=== PATIENT | male | born 1965 | race African-American/Black ===

== ENCOUNTER 2017-07-13 10:56 | Inpatient (IN) | payer OTHER ==
[2017-07-13 12:43] VITALS: BMI 24.8
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
[2017-07-13] MEDS ORDERED: MAG HYDROX/AL HYDROX/SIMETH 30 ML UNIT-DOSE CUP PO PRN (20:16)
[2017-07-13] MEDS ORDERED: NICOTINE POLACRILEX 2 MG GUM BUC PRN (20:16)
[2017-07-13] MEDS ORDERED: MAGNESIUM CITRATE 300 ML BOTTLE PO PRN (20:16)
[2017-07-13] MEDS ORDERED: hydrOXYzine PAMOATE 50 MG CAPSULE (FP) PO PRN (20:16)
[2017-07-13] MEDS ORDERED: guaiFENesin/D-METHORPHAN HB 10 ML UNIT-DOSE CUPS PO PRN (20:16)
[2017-07-13] MEDS ORDERED: ACETAMINOPHEN 325 MG TABLET (FP) PO PRN (20:16)
[2017-07-13] MEDS ORDERED: MAGNESIUM HYDROX 2400MG/30ML ORAL SUSPENSION 30 ML CUP PO PRN (20:16)
[2017-07-13] MEDS ORDERED: MENTHOL/PHENOL 1 EACH UD MM PRN (20:16)
[2017-07-13] MEDS ORDERED: LOPERAMIDE HCL 2 MG CAPSULE PO PRN (20:16)
[2017-07-13] MEDS ORDERED: P-EPHED 60MG/TRIPROLIDI 2.5MG TABLET PO PRN (20:16)
[2017-07-13] MEDS: THIAMINE HCL 100 MG TABLET (FP) PO SCH (21:39)
[2017-07-13] MEDS ORDERED: TUBERCULIN PPD 5 TU/0.1ML VIAL ID ONE (21:53)
[2017-07-14] MEDS: PRENATAL VITAMINS W/ FOLIC ACID TABLET (FP) PO SCH (10:12)
[2017-07-14] MEDS: ASPIRIN 81 MG CHEWABLE TABLETS PO SCH (10:12)
[2017-07-14] MEDS: HYDROCHLOROTHIAZIDE 25 MG TABLET (FP) PO SCH (10:12)
[2017-07-14 10:16] LABS: URINE APPEARANCE CLEAR; URINE BILIRUBIN NEGATIVE (NEGATIVE); URINE BLOOD NEGATIVE (NEGATIVE); URINE COLOR LTYELLOW; URINE GLUCOSE (UA) NEGATIVE (NEGATIVE); URINE KETONE NEGATIVE (NEGATIVE); URINE LEUK ESTERASE NEGATIVE (NEGATIVE); URINE NITRITE NEGATIVE (NEGATIVE); URINE PROTEIN NEGATIVE (NEGATIVE); URINE UROBILINOGEN NEGATIVE mg/dL (0.2-1.0)
--- NOTE | 2017-07-14 11:49 | HP ---
Psychiatrist Admission - Data Date of interview: 07/14/17 Admission source: Self-referred Identifying data: This is the first [facility] for this 51 years old single Black male, father of a 17 years old son, unemployed with no source of income, homeless Medical History: Significant for hypertension, old CVA and history of surgery for arthroscopic surdegery right knee in 2012. Smokes cigarettes 1ppd Psychiatric History: Denies history of previous psychiatric ctreatment Physical/Sexual Abuse/Trauma History: Denies Additional Comment: Denies criminal history Vital Signs: Vital Signs - 24 hr 07/13/17 07/14/17 07/14/17 12:41 00:30 03:30 Temperature 97.2 F L Pulse Rate 70 Respiratory 20 20 18 Rate Blood Pressure 128/67 07/14/17 07/14/17 07:08 10:00 Temperature 97.4 F L Pulse Rate 66 66 Respiratory 18 18 Rate Blood Pressure 142/78 150/71 Allergies/Adverse Reactions: Allergies Allergy/AdvReac Type Severity Reaction Status Date / Time shellfish derived Allergy Severe Swelling Verified 07/13/17 15:55 Date of last physical exam: 07/13/17 Concur with the findings of this exam: Yes - Substance Abuse/Tx History Hx Alcohol Use: Yes Hx Substance Use: Yes Substance Use Type: Alcohol (Started drinking alcohol at age 9, consumes one pint of cognac daily. Last drink on 07/03/17), Cocaine (Started smoking crack cocaine at age 20, consumes one oz 1-3 times in the last 30 days. Last smoked on 07/11/17) Hx Substance Use Treatment: Yes (2 previous inpt detox $ one inpt rehab) Mental Status Exam - Mental Status Exam Alert and Oriented to: Time, Place, Person Cognitive Function: Fair Patient Appearance: Well Groomed Mood: Irritable Affect: Appropriate Patient Behavior: Uncooperative Speech Pattern: Clear Voice Loudness: Normal Thought Process: Intact Hallucinations: Denies Suicidal Ideation: Denies Homicidal Ideation: Denies Sleep: Fair Appetite: Good Muscle strength/Tone: Normal Gait/Station: Normal Psychiatric Findings - Problem List (Caspian 1, 2,3) (1) Alcohol dependence Current Visit: Yes Status: Acute (2) Cocaine dependence Current Visit: Yes Status: Acute (3) Nicotine dependence Current Visit: Yes Status: Acute (4) Substance induced mood disorder Current Visit: Yes Status: Acute (5) Hypertension Current Visit: Yes Status: Acute (6) Old cerebrovascular accident (CVA) without late effect Current Visit: Yes Status: Acute - Initial Treatment Plan Initial Treatment Plan: Monitor progress
[2017-07-14 14:08] LABS: ALBUMIN 3.2 g/dl (3.4-5.0); ALK PHOS 78 U/L (45-117); ANION GAP 9 (8-16); BILIRUBIN,TOTAL 0.7 mg/dL (0.2-1.0); CALCIUM 8.6 mg/dL (8.5-10.1); CO2 27 mmol/L (21-32); CREATININE 1.1 mg/dL (0.7-1.3); GLUCOSE,RANDOM 102 mg/dL (74-106); SGOT/AST 34 U/L (15-37); SGPT/ALT 33 U/L (12-78); TOT PROT 6.9 g/dl (6.4-8.2)
[2017-07-14 14:18] LABS: RDW 14.3 % (11.9-15.9)
[2017-07-14 14:20] LABS: MCHC 32.8 g/dl (32.0-35.9); MEAN CELL VOLUME 85.2 fl (80-96); MEAN PLT VOLUME 9.3 fl (7.5-11.1); PLATELET COUNT 212 K/MM3 (134-434); WHITE BLOOD COUNT 3.4 K/mm3 (4.0-10.0)
--- NOTE | 2017-07-14 16:01 | EKG ---
Test Reason : Blood Pressure : / mmHG Vent. Rate : 060 BPM Atrial Rate : 060 BPM P-R Int : 160 ms QRS Dur : 130 ms QT Int : 474 ms P-R-T Axes : 065 064 047 degrees QTc Int : 474 ms NORMAL SINUS RHYTHM RIGHT BUNDLE BRANCH BLOCK ABNORMAL ECG NO PREVIOUS ECGS AVAILABLE Confirmed by LORE ZHU, ADIS ([id number]) on 07/14/2017 4:01:27 PM Referred By: Erin Adams Confirmed By:ADIS TORREZ MD
[2017-07-14] MEDS: THIAMINE HCL 100 MG TABLET (FP) PO SCH (21:45)
[2017-07-15] MEDS: ASPIRIN 81 MG CHEWABLE TABLETS PO SCH (09:36)
[2017-07-15] MEDS: HYDROCHLOROTHIAZIDE 25 MG TABLET (FP) PO SCH (09:36)
[2017-07-15] MEDS: PRENATAL VITAMINS W/ FOLIC ACID TABLET (FP) PO SCH (09:36)
[2017-07-15] MEDS: THIAMINE HCL 100 MG TABLET (FP) PO SCH (21:57)
[2017-07-16] MEDS: ASPIRIN 81 MG CHEWABLE TABLETS PO SCH (09:31)
[2017-07-16] MEDS: PRENATAL VITAMINS W/ FOLIC ACID TABLET (FP) PO SCH (09:31)
[2017-07-16] MEDS: HYDROCHLOROTHIAZIDE 25 MG TABLET (FP) PO SCH (09:31)
[2017-07-16] MEDS: THIAMINE HCL 100 MG TABLET (FP) PO SCH (21:32)
[2017-07-17] MEDS: ASPIRIN 81 MG CHEWABLE TABLETS PO SCH (10:12)
[2017-07-17] MEDS: PRENATAL VITAMINS W/ FOLIC ACID TABLET (FP) PO SCH (10:12)
[2017-07-17] MEDS: HYDROCHLOROTHIAZIDE 25 MG TABLET (FP) PO SCH (10:12)
[2017-07-17] MEDS: diphenhydrAMINE HCL 50 MG CAPSULE PO PRN (21:37)
[2017-07-17] MEDS: THIAMINE HCL 100 MG TABLET (FP) PO SCH (21:37)
[2017-07-17] MEDS: IBUPROFEN 400 MG TABLET (FP) PO PRN (23:40)
[2017-07-18] MEDS: ASPIRIN 81 MG CHEWABLE TABLETS PO SCH (10:15)
[2017-07-18] MEDS: PRENATAL VITAMINS W/ FOLIC ACID TABLET (FP) PO SCH (10:15)
[2017-07-18] MEDS: HYDROCHLOROTHIAZIDE 25 MG TABLET (FP) PO SCH (10:15)
[2017-07-18] MEDS: diphenhydrAMINE HCL 50 MG CAPSULE PO PRN (21:36)
[2017-07-18] MEDS: THIAMINE HCL 100 MG TABLET (FP) PO SCH (21:36)
[2017-07-19] MEDS: PRENATAL VITAMINS W/ FOLIC ACID TABLET (FP) PO SCH (10:05)
[2017-07-19] MEDS: ASPIRIN 81 MG CHEWABLE TABLETS PO SCH (10:05)
[2017-07-19] MEDS: HYDROCHLOROTHIAZIDE 25 MG TABLET (FP) PO SCH (10:07)
[2017-07-19] MEDS: diphenhydrAMINE HCL 50 MG CAPSULE PO PRN (21:24)
[2017-07-19] MEDS: THIAMINE HCL 100 MG TABLET (FP) PO SCH (21:24)
[2017-07-20] MEDS: PRENATAL VITAMINS W/ FOLIC ACID TABLET (FP) PO SCH (10:31)
[2017-07-20] MEDS: HYDROCHLOROTHIAZIDE 25 MG TABLET (FP) PO SCH (10:31)
[2017-07-20] MEDS: ASPIRIN 81 MG CHEWABLE TABLETS PO SCH (10:31)
[2017-07-20] MEDS: IBUPROFEN 400 MG TABLET (FP) PO PRN (10:32)
[2017-07-20] MEDS: THIAMINE HCL 100 MG TABLET (FP) PO SCH (21:37)
[2017-07-20] MEDS: diphenhydrAMINE HCL 50 MG CAPSULE PO PRN (21:37)
[2017-07-21] MEDS: PRENATAL VITAMINS W/ FOLIC ACID TABLET (FP) PO SCH (10:00)
[2017-07-21] MEDS: HYDROCHLOROTHIAZIDE 25 MG TABLET (FP) PO SCH (10:00)
[2017-07-21] MEDS: ASPIRIN 81 MG CHEWABLE TABLETS PO SCH (10:00)
[2017-07-21] MEDS: diphenhydrAMINE HCL 50 MG CAPSULE PO PRN (21:26)
[2017-07-21] MEDS: THIAMINE HCL 100 MG TABLET (FP) PO SCH (21:27)
[2017-07-22] MEDS: ASPIRIN 81 MG CHEWABLE TABLETS PO SCH (09:55)
[2017-07-22] MEDS: HYDROCHLOROTHIAZIDE 25 MG TABLET (FP) PO SCH (09:55)
[2017-07-22] MEDS: PRENATAL VITAMINS W/ FOLIC ACID TABLET (FP) PO SCH (09:55)
[2017-07-22] MEDS: THIAMINE HCL 100 MG TABLET (FP) PO SCH (21:15)
[2017-07-22] MEDS: diphenhydrAMINE HCL 50 MG CAPSULE PO PRN (21:15)
[2017-07-23] MEDS: ASPIRIN 81 MG CHEWABLE TABLETS PO SCH (10:16)
[2017-07-23] MEDS: HYDROCHLOROTHIAZIDE 25 MG TABLET (FP) PO SCH (10:16)
[2017-07-23] MEDS: PRENATAL VITAMINS W/ FOLIC ACID TABLET (FP) PO SCH (10:16)
[2017-07-23] MEDS: THIAMINE HCL 100 MG TABLET (FP) PO SCH (21:40)
[2017-07-23] MEDS: diphenhydrAMINE HCL 50 MG CAPSULE PO PRN (21:41)
[2017-07-24] MEDS: HYDROCHLOROTHIAZIDE 25 MG TABLET (FP) PO SCH (10:20)
[2017-07-24] MEDS: PRENATAL VITAMINS W/ FOLIC ACID TABLET (FP) PO SCH (10:20)
[2017-07-24] MEDS: ASPIRIN 81 MG CHEWABLE TABLETS PO SCH (10:20)
[2017-07-24] MEDS: THIAMINE HCL 100 MG TABLET (FP) PO SCH (21:37)
[2017-07-24] MEDS: diphenhydrAMINE HCL 50 MG CAPSULE PO PRN (21:37)
[2017-07-25] MEDS: ASPIRIN 81 MG CHEWABLE TABLETS PO SCH (09:48)
[2017-07-25] MEDS: PRENATAL VITAMINS W/ FOLIC ACID TABLET (FP) PO SCH (09:48)
[2017-07-25] MEDS: HYDROCHLOROTHIAZIDE 25 MG TABLET (FP) PO SCH (09:48)
[2017-07-25] MEDS: diphenhydrAMINE HCL 50 MG CAPSULE PO PRN (21:21)
[2017-07-25] MEDS: THIAMINE HCL 100 MG TABLET (FP) PO SCH (21:21)
[2017-07-26] MEDS: HYDROCHLOROTHIAZIDE 25 MG TABLET (FP) PO SCH (10:33)
[2017-07-26] MEDS: PRENATAL VITAMINS W/ FOLIC ACID TABLET (FP) PO SCH (10:33)
[2017-07-26] MEDS: ASPIRIN 81 MG CHEWABLE TABLETS PO SCH (10:33)
[2017-07-26] MEDS: THIAMINE HCL 100 MG TABLET (FP) PO SCH (21:43)
[2017-07-27] MEDS: HYDROCHLOROTHIAZIDE 25 MG TABLET (FP) PO SCH (10:12)
[2017-07-27] MEDS: ASPIRIN 81 MG CHEWABLE TABLETS PO SCH (10:12)
[2017-07-27] MEDS: PRENATAL VITAMINS W/ FOLIC ACID TABLET (FP) PO SCH (10:12)
[2017-07-27] MEDS: diphenhydrAMINE HCL 50 MG CAPSULE PO PRN (21:39)
[2017-07-27] MEDS: THIAMINE HCL 100 MG TABLET (FP) PO SCH (21:39)
[2017-07-28] MEDS: HYDROCHLOROTHIAZIDE 25 MG TABLET (FP) PO SCH (10:08)
[2017-07-28] MEDS: ASPIRIN 81 MG CHEWABLE TABLETS PO SCH (10:08)
[2017-07-28] MEDS: PRENATAL VITAMINS W/ FOLIC ACID TABLET (FP) PO SCH (10:08)
[2017-07-28] MEDS: THIAMINE HCL 100 MG TABLET (FP) PO SCH (21:46)
[2017-07-28] MEDS: diphenhydrAMINE HCL 50 MG CAPSULE PO PRN (21:46)
[2017-07-29] MEDS: PRENATAL VITAMINS W/ FOLIC ACID TABLET (FP) PO SCH (10:16)
[2017-07-29] MEDS: HYDROCHLOROTHIAZIDE 25 MG TABLET (FP) PO SCH (10:16)
[2017-07-29] MEDS: ASPIRIN 81 MG CHEWABLE TABLETS PO SCH (10:16)
[2017-07-29] MEDS: THIAMINE HCL 100 MG TABLET (FP) PO SCH (21:45)
[2017-07-29] MEDS: diphenhydrAMINE HCL 50 MG CAPSULE PO PRN (21:45)
[2017-07-30] MEDS: ASPIRIN 81 MG CHEWABLE TABLETS PO SCH (10:10)
[2017-07-30] MEDS: PRENATAL VITAMINS W/ FOLIC ACID TABLET (FP) PO SCH (10:10)
[2017-07-30] MEDS: HYDROCHLOROTHIAZIDE 25 MG TABLET (FP) PO SCH (10:10)
[2017-07-30] MEDS: diphenhydrAMINE HCL 50 MG CAPSULE PO PRN (21:53)
[2017-07-30] MEDS: THIAMINE HCL 100 MG TABLET (FP) PO SCH (21:53)
[2017-07-31] MEDS: HYDROCHLOROTHIAZIDE 25 MG TABLET (FP) PO SCH (10:14)
[2017-07-31] MEDS: ASPIRIN 81 MG CHEWABLE TABLETS PO SCH (10:14)
[2017-07-31] MEDS: PRENATAL VITAMINS W/ FOLIC ACID TABLET (FP) PO SCH (10:14)
[2017-07-31] MEDS: THIAMINE HCL 100 MG TABLET (FP) PO SCH (21:37)
[2017-07-31] MEDS: diphenhydrAMINE HCL 50 MG CAPSULE PO PRN (21:37)
[2017-08-01] MEDS: HYDROCHLOROTHIAZIDE 25 MG TABLET (FP) PO SCH (10:27)
[2017-08-01] MEDS: PRENATAL VITAMINS W/ FOLIC ACID TABLET (FP) PO SCH (10:27)
[2017-08-01] MEDS: ASPIRIN 81 MG CHEWABLE TABLETS PO SCH (10:27)
[2017-08-01] MEDS: THIAMINE HCL 100 MG TABLET (FP) PO SCH (21:32)
[2017-08-01] MEDS: diphenhydrAMINE HCL 50 MG CAPSULE PO PRN (21:33)
[2017-08-02] MEDS: PRENATAL VITAMINS W/ FOLIC ACID TABLET (FP) PO SCH (10:20)
[2017-08-02] MEDS: HYDROCHLOROTHIAZIDE 25 MG TABLET (FP) PO SCH (10:20)
[2017-08-02] MEDS: ASPIRIN 81 MG CHEWABLE TABLETS PO SCH (10:20)
[2017-08-02] MEDS: THIAMINE HCL 100 MG TABLET (FP) PO SCH (21:22)
[2017-08-02] MEDS: diphenhydrAMINE HCL 50 MG CAPSULE PO PRN (21:23)
[2017-08-02] MEDS ORDERED: SUVOREXANT 10 MG TABLET PO PRN (22:00)
[2017-08-03] MEDS: HYDROCHLOROTHIAZIDE 25 MG TABLET (FP) PO SCH (10:17)
[2017-08-03] MEDS: ASPIRIN 81 MG CHEWABLE TABLETS PO SCH (10:17)
[2017-08-03] MEDS: PRENATAL VITAMINS W/ FOLIC ACID TABLET (FP) PO SCH (10:17)
[2017-08-03] MEDS: diphenhydrAMINE HCL 50 MG CAPSULE PO PRN (21:19)
[2017-08-03] MEDS: THIAMINE HCL 100 MG TABLET (FP) PO SCH (21:19)
[2017-08-04] MEDS: HYDROCHLOROTHIAZIDE 25 MG TABLET (FP) PO SCH (10:05)
[2017-08-04] MEDS: PRENATAL VITAMINS W/ FOLIC ACID TABLET (FP) PO SCH (10:05)
[2017-08-04] MEDS: ASPIRIN 81 MG CHEWABLE TABLETS PO SCH (10:05)
[2017-08-04] MEDS: THIAMINE HCL 100 MG TABLET (FP) PO SCH (21:31)
[2017-08-04] MEDS ORDERED: SUVOREXANT 10 MG TABLET PO PRN (22:00)
[2017-08-05] MEDS: ASPIRIN 81 MG CHEWABLE TABLETS PO SCH (10:16)
[2017-08-05] MEDS: HYDROCHLOROTHIAZIDE 25 MG TABLET (FP) PO SCH (10:16)
[2017-08-05] MEDS: PRENATAL VITAMINS W/ FOLIC ACID TABLET (FP) PO SCH (10:16)
[2017-08-05] MEDS ORDERED: COLLOIDAL OATMEAL 1 BAR EACH TP PRN (14:56)
[2017-08-05] MEDS: diphenhydrAMINE HCL 50 MG CAPSULE PO PRN (21:40)
[2017-08-05] MEDS: THIAMINE HCL 100 MG TABLET (FP) PO SCH (21:40)
[2017-08-06] MEDS: ASPIRIN 81 MG CHEWABLE TABLETS PO SCH (10:09)
[2017-08-06] MEDS: PRENATAL VITAMINS W/ FOLIC ACID TABLET (FP) PO SCH (10:09)
[2017-08-06] MEDS: HYDROCHLOROTHIAZIDE 25 MG TABLET (FP) PO SCH (10:09)
[2017-08-06] MEDS: diphenhydrAMINE HCL 50 MG CAPSULE PO PRN (21:46)
[2017-08-06] MEDS: THIAMINE HCL 100 MG TABLET (FP) PO SCH (21:46)
[2017-08-07] MEDS: HYDROCHLOROTHIAZIDE 25 MG TABLET (FP) PO SCH (10:16)
[2017-08-07] MEDS: ASPIRIN 81 MG CHEWABLE TABLETS PO SCH (10:16)
[2017-08-07] MEDS: PRENATAL VITAMINS W/ FOLIC ACID TABLET (FP) PO SCH (10:16)
[2017-08-07] MEDS: THIAMINE HCL 100 MG TABLET (FP) PO SCH (21:34)
[2017-08-07] MEDS: diphenhydrAMINE HCL 50 MG CAPSULE PO PRN (21:34)
[2017-08-08] MEDS: PRENATAL VITAMINS W/ FOLIC ACID TABLET (FP) PO SCH (10:08)
[2017-08-08] MEDS: ASPIRIN 81 MG CHEWABLE TABLETS PO SCH (10:08)
[2017-08-08] MEDS: HYDROCHLOROTHIAZIDE 25 MG TABLET (FP) PO SCH (10:08)
[2017-08-08] MEDS: THIAMINE HCL 100 MG TABLET (FP) PO SCH (21:25)
[2017-08-08] MEDS: diphenhydrAMINE HCL 50 MG CAPSULE PO PRN (21:25)
[2017-08-08] MEDS: SUVOREXANT 10 MG TABLET PO PRN (21:26)
[2017-08-09 07:07] VITALS: TEMP 98.4
[2017-08-09] MEDS: ASPIRIN 81 MG CHEWABLE TABLETS PO SCH (10:29)
[2017-08-09] MEDS: HYDROCHLOROTHIAZIDE 25 MG TABLET (FP) PO SCH (10:29)
[2017-08-09] MEDS: PRENATAL VITAMINS W/ FOLIC ACID TABLET (FP) PO SCH (10:29)
[2017-08-09] MEDS ORDERED: SUVOREXANT 10 MG TABLET PO PRN (22:00)
[2017-08-09] MEDS: SUVOREXANT 10 MG TABLET PO PRN (22:16)
[2017-08-09] MEDS: THIAMINE HCL 100 MG TABLET (FP) PO SCH (22:16)
--- NOTE | 2017-08-10 06:57 | PN ---
Psychiatric Progress Note Vital Signs: Vital Signs Period Temp Pulse Resp BP Sys/Borjas Pulse Ox Last 24 Hr 98.4 F 71-74 18-18 139-151/74-82 Date of Session: 08/10/17 Chief Complaint:: Discharge Note HPI: Patient addressing Alcohol And Cocaine Dependence comorbid with Nicotine Dependence ROS: HTN, old CVA were medically managed Current Medications: Active Medications Generic Name Dose Route Start Last Admin Trade Name Freq PRN Reason Stop Dose Admin Acetaminophen 650 mg 07/13/17 20:16 Tylenol - PO Q4H PRN PAIN Al Hydroxide/Mg Hydroxide 30 ml 07/13/17 20:16 Mylanta Oral Suspension - PO Q6H PRN DYSPEPSIA Aspirin 81 mg 07/14/17 10:00 08/09/17 10:29 Asa - PO 81 mg DAILY MONISHA Administration Colloidal Oatmeal 1 applic 08/05/17 14:56 08/06/17 10:33 Aveeno Soap - TP 1 applic DAILY PRN Administration HYGEINE Diphenhydramine HCl 50 mg 07/13/17 20:16 08/08/17 21:25 Benadryl - PO 50 mg HSMR1 PRN Administration INSOMNIA Eucalyptus/Menthol/Phenol/Sorbitol 1 each 07/13/17 20:16 Cepastat Lozenge - MM Q4H PRN SORE THROAT Guaifenesin 10 ml 07/13/17 20:16 Robitussin Dm - PO Q6H PRN COUGH Hydrochlorothiazide 25 mg 07/14/17 10:00 08/09/17 10:29 Hctz - PO 25 mg DAILY MONISHA Administration Hydroxyzine Pamoate 50 mg 07/13/17 20:16 Vistaril - PO Q4H PRN AGITATION Ibuprofen 400 mg 07/13/17 20:16 07/20/17 10:32 Motrin - PO 400 mg Q6H PRN Administration SEVERE PAIN Loperamide HCl 4 mg 07/13/17 20:16 Imodium - PO Q6H PRN DIARRHEA Magnesium Citrate 300 ml 07/13/17 20:16 Citroma - PO Q48H PRN CONSTIPATION Magnesium Hydroxide 30 ml 07/13/17 20:16 Milk Of Magnesia - PO DAILY PRN CONSTIPATION Nicotine Polacrilex 2 mg 07/13/17 20:16 Nicorette Gum - BUC Q2H PRN NICOTINE REPLACEMENT RX Multivit/Folic Acid/Iron 1 tab 07/14/17 10:00 08/09/17 10:29 Vitamins ([facility]) - PO 1 tab DAILY MONISHA Administration Thiamine HCl 100 mg 07/13/17 22:00 08/09/17 22:16 Vitamin B1 - PO 100 mg HS MONISHA Administration Current Side Effect: No Lab tests ordered: Yes Lab tests reviewed: Yes Provider note:: Patient has completed this program today. He has met his treatment goals and will continue to address his issues in outpatient treatment at [facility]. 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 He is stable for discharge today Total face to face time:: 35 Mental Status Exam - Mental Status Exam Alert and Oriented to: Time, Place, Person Cognitive Function: Fair Patient Appearance: Well Groomed Mood: Hopeful, Euthymic Affect: Appropriate Patient Behavior: Cooperative Speech Pattern: Clear Voice Loudness: Normal Thought Process: Intact, Goal Oriented Thought Disorder: Not Present Hallucinations: Denies Suicidal Ideation: Denies Homicidal Ideation: Denies Insight/Judgement: Fair Sleep: Well Appetite: Good Muscle strength/Tone: Normal Gait/Station: Normal Psychiatric Treatment Plan - Problem List (1) Alcohol dependence Current Visit: Yes (2) Cocaine dependence Current Visit: Yes (3) Nicotine dependence Current Visit: Yes (4) Substance induced mood disorder Current Visit: Yes (5) Hypertension Current Visit: Yes (6) Old cerebrovascular accident (CVA) without late effect Current Visit: Yes Initial treatment plan: Patient is discharged today and referred to for outpatient treatment
[2017-08-10 07:19] VITALS: BP 149/92; PULSE 63
[2017-08-10] MEDS: PRENATAL VITAMINS W/ FOLIC ACID TABLET (FP) PO SCH (09:40)
[2017-08-10] MEDS: HYDROCHLOROTHIAZIDE 25 MG TABLET (FP) PO SCH (09:40)
[2017-08-10] MEDS: ASPIRIN 81 MG CHEWABLE TABLETS PO SCH (09:40)
== END 2017-08-10 10:00 | disposition home or self-care (01) | DRG 772 ==
LOC: YASAS 10:56 → UNDOADMIN 16:28 → Y6N 16:28 → Y3W 19:50
PROVIDERS: ADMIT Psychiatry & Neurology Psychiatry; ATTEND Internal Medicine
PROC: HZ42ZZZ Group Counseling for Substance Abuse Treatment, Cognitive-Behavioral (ICD-10-PCS; principal; 2017-07-13)
DX: F10.20 Alcohol dependence, uncomplicated (principal); F14.20 Cocaine dependence, uncomplicated; F17.210 Nicotine dependence, cigarettes, uncomplicated; F19.24 Other psychoactive substance dependence with psychoactive substance-induced mood disorder; I10 Essential (primary) hypertension; Z86.73 Personal history of transient ischemic attack (TIA), and cerebral infarction without residual deficits
CPT/HCPCS: 36415; 80053; 81003; 85027; 86593; 93005; 93010

== ENCOUNTER 2018-03-18 13:03 | Inpatient (IN) | payer OTHER ==
[2018-03-18 16:33] VITALS: BMI 32.8
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
[2018-03-18] MEDS ORDERED: guaiFENesin/D-METHORPHAN HB 10 ML UNIT-DOSE CUPS PO PRN (19:26)
[2018-03-18] MEDS ORDERED: hydrOXYzine PAMOATE 50 MG CAPSULE (FP) PO PRN (19:26)
[2018-03-18] MEDS ORDERED: ACETAMINOPHEN 325 MG TABLET (FP) PO PRN (19:26)
[2018-03-18] MEDS ORDERED: P-EPHED 60MG/TRIPROLIDI 2.5MG TABLET PO PRN (19:26)
[2018-03-18] MEDS ORDERED: MENTHOL/PHENOL 1 EACH UD MM PRN (19:26)
[2018-03-18] MEDS ORDERED: LOPERAMIDE HCL 2 MG CAPSULE PO PRN (19:26)
[2018-03-18] MEDS ORDERED: MAGNESIUM CITRATE 300 ML BOTTLE PO PRN (19:26)
[2018-03-18] MEDS ORDERED: MAG HYDROX/AL HYDROX/SIMETH 30 ML UNIT-DOSE CUP PO PRN (19:26)
[2018-03-18] MEDS ORDERED: chlordiazePOXIDE HCL 25 MG CAPSULE PO PRN (19:26)
[2018-03-18] MEDS ORDERED: IBUPROFEN 400 MG TABLET (FP) PO PRN (19:26)
[2018-03-18] MEDS ORDERED: MAGNESIUM HYDROX 2400MG/30ML ORAL SUSPENSION 30 ML CUP PO PRN (19:26)
[2018-03-18] MEDS ORDERED: chlordiazePOXIDE HCL 25 MG CAPSULE PO ONE (19:45)
[2018-03-18] MEDS ORDERED: cloNIDine HCL 0.1 MG TABLET PO ONE (19:45)
[2018-03-18] MEDS: HYDROCHLOROTHIAZIDE 12.5 MG CAPSULE (FP) PO SCH (20:31)
[2018-03-18] MEDS ORDERED: MELATONIN 5 MG TABLETS PO PRN (22:00)
[2018-03-18 23:04] LABS: URINE APPEARANCE CLEAR; URINE BILIRUBIN NEGATIVE (<2.0 mg/dL); URINE COLOR YELLOW; URINE GLUCOSE (UA) NEGATIVE (NEGATIVE); URINE KETONE NEGATIVE (NEGATIVE); URINE LEUK ESTERASE NEGATIVE (NEGATIVE); URINE NITRITE NEGATIVE (NEGATIVE); URINE PROTEIN NEGATIVE (NEGATIVE); URINE UROBILINOGEN NEGATIVE mg/dL (0.2-1.0)
[2018-03-18] MEDS: chlordiazePOXIDE HCL 25 MG CAPSULE PO SCH (23:13)
[2018-03-18] MEDS: THIAMINE HCL 100 MG TABLET (FP) PO SCH (23:14)
[2018-03-19] MEDS: chlordiazePOXIDE HCL 25 MG CAPSULE PO SCH ×4 (06:08→23:03)
[2018-03-19 09:29] LABS: HEMATOCRIT 40.4 % (35.4-49); HEMOGLOBIN 13.4 GM/dL (11.7-16.9); MCH 29.1 pg (25.7-33.7); MCHC 33.3 g/dl (32.0-35.9); MEAN CELL VOLUME 87.3 fl (80-96); MEAN PLT VOLUME 9.6 fl (7.5-11.1); PLATELET COUNT 273 K/MM3 (134-434); RBC 4.63 M/mm3 (4.00-5.60); RDW 13.9 % (11.9-15.9); WHITE BLOOD COUNT 3.9 K/mm3 (4.0-10.0)
[2018-03-19 09:38] LABS: ALBUMIN 3.3 g/dl (3.4-5.0); ANION GAP 8 (8-16); BLOOD UREA NITROGEN 14 mg/dL (7-18); CALCIUM 8.5 mg/dL (8.5-10.1); CHLORIDE 105 mmol/L (98-107); CO2 27 mmol/L (21-32); GLUCOSE,RANDOM 86 mg/dL (74-106); SODIUM 140 mmol/L (136-145)
[2018-03-19 09:43] LABS: ALK PHOS 91 U/L (45-117); BILIRUBIN,TOTAL 0.4 mg/dL (0.2-1.0); CREATININE 1.3 mg/dL (0.7-1.3); SGOT/AST 19 U/L (15-37); SGPT/ALT 20 U/L (12-78); TOT PROT 7.7 g/dl (6.4-8.2)
--- NOTE | 2018-03-19 10:05 | EKG ---
Test Reason : Blood Pressure : / mmHG Vent. Rate : 069 BPM Atrial Rate : 069 BPM P-R Int : 158 ms QRS Dur : 128 ms QT Int : 438 ms P-R-T Axes : 042 080 038 degrees QTc Int : 469 ms NORMAL SINUS RHYTHM RIGHT BUNDLE BRANCH BLOCK ABNORMAL ECG WHEN COMPARED WITH ECG OF 14-JUL-2017 05:41, NO SIGNIFICANT CHANGE WAS FOUND Confirmed by ISABEL ZHU, THEODORA ([id number]) on 03/19/2018 10:05:34 AM Referred By: Devin Ramirez Confirmed By:THEODORA HALL MD
[2018-03-19] MEDS: HYDROCHLOROTHIAZIDE 12.5 MG CAPSULE (FP) PO SCH (10:32)
[2018-03-19] MEDS: ASPIRIN 81 MG CHEWABLE TABLETS PO SCH (10:33)
[2018-03-19] MEDS: PRENATAL VITAMINS W/ FOLIC ACID TABLET (FP) PO SCH (10:33)
--- NOTE | 2018-03-19 16:38 | PN ---
S CIWA - CIWA Score Nausea/Vomitin Muscle Tremors: 4-Moderate,w/Arms Extend Anxiety: 4-Mod. Anxious/Guarded Agitation: 3 Paroxysmal Sweats: 3 Orientation: 0-Oriented Tacttile Disturbances: 1-Very Mild Itch/Numbness Auditory Disturbances: 0-None Visual Disturbances: 0-None Headache: 1-Very Mild CIWA-Ar Total Score: 19 BHS Progress Note (SOAP) Subjective: Sweating, tremor, interrupted sleep Objective: 03/19/18 16:34 Last Vital Signs Temp Pulse Resp BP Pulse Ox 98.0 F 61 18 123/64 03/19/18 14:53 03/19/18 14:53 03/19/18 14:53 03/19/18 14:53 Laboratory Tests 03/18/18 03/19/18 03/19/18 22:20 07:45 07:45 WBC 3.9 L RBC 4.63 Hgb 13.4 Hct 40.4 MCV 87.3 MCH 29.1 MCHC 33.3 RDW 13.9 Plt Count 273 D MPV 9.6 Sodium 140 Potassium 4.0 Chloride 105 Carbon Dioxide 27 Anion Gap 8 BUN 14 Creatinine 1.3 Creat Clearance w eGFR 57.53 Random Glucose 86 Calcium 8.5 Total Bilirubin 0.4 D AST 19 D ALT 20 D Alkaline Phosphatase 91 Total Protein 7.7 Albumin 3.3 L Urine Color Yellow Urine Appearance Clear Urine pH 5.0 Ur Specific Qu[place] 1.015 Urine Protein Negative Urine Glucose (UA) Negative Urine Ketones Negative Urine Blood Negative Urine Nitrite Negative Urine Bilirubin Negative Urine Urobilinogen Negative Ur Leukocyte Esterase Negative RPR Titer 03/19/18 07:45 WBC RBC Hgb Hct MCV MCH MCHC RDW Plt Count MPV Sodium Potassium Chloride Carbon Dioxide Anion Gap BUN Creatinine Creat Clearance w eGFR Random Glucose Calcium Total Bilirubin AST ALT Alkaline Phosphatase Total Protein Albumin Urine Color Urine Appearance Urine pH Ur Specific Quinter Urine Protein Urine Glucose (UA) Urine Ketones Urine Blood Urine Nitrite Urine Bilirubin Urine Urobilinogen Ur Leukocyte Esterase RPR Titer Nonreactive Labs reviewed: WILLAM EKG: NSR at 84 bpm, RBBB, prolonged QTc 491; previous EKG: RBBB, QTc 480 Assessment: 03/19/18 16:35 Withdrawal symptoms Noted with WILLAM Had repeated EKG which shows prolonged QTc and RBBB Plan: Continue detox WILLAM: encouraged PO water hydration, repeat BMP on 03/21 Abnormal EKG: repeat EKG in AM
[2018-03-19] MEDS: THIAMINE HCL 100 MG TABLET (FP) PO SCH (23:03)
[2018-03-20] MEDS: chlordiazePOXIDE HCL 25 MG CAPSULE PO SCH ×3 (06:28→18:21)
[2018-03-20] MEDS: PRENATAL VITAMINS W/ FOLIC ACID TABLET (FP) PO SCH (10:17)
[2018-03-20] MEDS: HYDROCHLOROTHIAZIDE 12.5 MG CAPSULE (FP) PO SCH (10:17)
[2018-03-20] MEDS: ASPIRIN 81 MG CHEWABLE TABLETS PO SCH (10:17)
--- NOTE | 2018-03-20 17:27 | PN ---
S CIWA - CIWA Score Nausea/Vomitin Muscle Tremors: 3 Anxiety: 3 Agitation: 3 Paroxysmal Sweats: 3 Orientation: 0-Oriented Tacttile Disturbances: 0-None Auditory Disturbances: 0-None Visual Disturbances: 0-None Headache: 0-None Present CIWA-Ar Total Score: 14 BHS Progress Note (SOAP) Subjective: sleep disturbance sweats shakes Objective: 03/20/18 17:26 Sleeping, rouses to verbal stimuli A & O x 3 Vital Signs Temperature 98.5 F 03/20/18 14:12 Pulse Rate 77 03/20/18 14:12 Respiratory Rate 16 03/20/18 14:12 Blood Pressure 118/68 03/20/18 14:12 O2 Sat by Pulse Oximetry (%) Assessment: 03/20/18 17:27 withdrawal sx Plan: continue detox
[2018-03-20] MEDS: THIAMINE HCL 100 MG TABLET (FP) PO SCH (23:06)
[2018-03-20] MEDS: chlordiazePOXIDE 5 MG CAPSULE PO SCH (23:07)
[2018-03-21] MEDS: chlordiazePOXIDE 5 MG CAPSULE PO SCH ×3 (07:26→17:38)
[2018-03-21 10:04] LABS: ANION GAP 4 (8-16); BLOOD UREA NITROGEN 13 mg/dL (7-18); CALCIUM 8.9 mg/dL (8.5-10.1); CHLORIDE 100 mmol/L (98-107); CO2 33 mmol/L (21-32); CREATININE 1.4 mg/dL (0.7-1.3); GLUCOSE,RANDOM 88 mg/dL (74-106); SODIUM 137 mmol/L (136-145)
[2018-03-21] MEDS: HYDROCHLOROTHIAZIDE 12.5 MG CAPSULE (FP) PO SCH (10:06)
[2018-03-21] MEDS: PRENATAL VITAMINS W/ FOLIC ACID TABLET (FP) PO SCH (10:06)
[2018-03-21] MEDS: ASPIRIN 81 MG CHEWABLE TABLETS PO SCH (10:06)
--- NOTE | 2018-03-21 21:20 | PN ---
BHS Progress Note (SOAP) Subjective: Fatigue, H/A, Stomach Cramping. Objective: PATIENT A & O X 2 (UNCERTAIN ABOUT CURRENT DAY / DATE). PATIENT OBSERVED AMBULATING ON UNIT. NO ACUTE DISTRESS. 03/21/18 21:17 Vital Signs Temperature 96.3 F L 03/21/18 17:30 Pulse Rate 70 03/21/18 17:30 Respiratory Rate 16 03/21/18 17:30 Blood Pressure 100/62 03/21/18 17:30 O2 Sat by Pulse Oximetry (%) Laboratory Tests 03/18/18 03/19/18 03/19/18 22:20 07:45 07:45 WBC 3.9 L RBC 4.63 Hgb 13.4 Hct 40.4 MCV 87.3 MCH 29.1 MCHC 33.3 RDW 13.9 Plt Count 273 D MPV 9.6 Sodium 140 Potassium 4.0 Chloride 105 Carbon Dioxide 27 Anion Gap 8 BUN 14 Creatinine 1.3 Creat Clearance w eGFR 57.53 Random Glucose 86 Calcium 8.5 Total Bilirubin 0.4 D AST 19 D ALT 20 D Alkaline Phosphatase 91 Total Protein 7.7 Albumin 3.3 L Urine Color Yellow Urine Appearance Clear Urine pH 5.0 Ur Specific [place] 1.015 Urine Protein Negative Urine Glucose (UA) Negative Urine Ketones Negative Urine Blood Negative Urine Nitrite Negative Urine Bilirubin Negative Urine Urobilinogen Negative Ur Leukocyte Esterase Negative RPR Titer 03/19/18 03/21/18 07:45 07:45 WBC RBC Hgb Hct MCV MCH MCHC RDW Plt Count MPV Sodium 137 Potassium 4.0 Chloride 100 Carbon Dioxide 33 H D Anion Gap 4 L BUN 13 Creatinine 1.4 H Creat Clearance w eGFR Random Glucose 88 Calcium 8.9 Total Bilirubin AST ALT Alkaline Phosphatase Total Protein Albumin Urine Color Urine Appearance Urine pH Ur Specific [place] Urine Protein Urine Glucose (UA) Urine Ketones Urine Blood Urine Nitrite Urine Bilirubin Urine Urobilinogen Ur Leukocyte Esterase RPR Titer Nonreactive LABS NOTED. Assessment: 03/21/18 21:18 WITHDRAWAL SYMPTOMS. Plan: CONTINUE DETOX. INCREASE DAILY PO FLUID INTAKE. PATIENT SCHEDULED FOR D/C TOMORROW.
[2018-03-21] MEDS: THIAMINE HCL 100 MG TABLET (FP) PO SCH (22:23)
[2018-03-21] MEDS: chlordiazePOXIDE HCL 10 MG CAPSULE PO SCH (22:23)
[2018-03-22] MEDS: chlordiazePOXIDE HCL 10 MG CAPSULE PO SCH ×2 (06:16→10:05)
[2018-03-22 09:16] VITALS: BP 114/75; PULSE 90; TEMP 97
[2018-03-22] MEDS: HYDROCHLOROTHIAZIDE 12.5 MG CAPSULE (FP) PO SCH (10:04)
[2018-03-22] MEDS: PRENATAL VITAMINS W/ FOLIC ACID TABLET (FP) PO SCH (10:04)
[2018-03-22] MEDS: ASPIRIN 81 MG CHEWABLE TABLETS PO SCH (10:04)
--- NOTE | 2018-03-22 15:31 | PN ---
BHS Progress Note (SOAP) Subjective: Patient denies current Detox symptoms and reports that he feels well overall. Objective: PATIENT A & O X 3, OBSERVED AMBULATING ON UNIT. NO ACUTE DISTRESS. 03/22/18 15:30 Vital Signs Temperature 97 F L 03/22/18 09:15 Pulse Rate 90 03/22/18 09:15 Respiratory Rate 18 03/22/18 09:15 Blood Pressure 114/75 03/22/18 09:15 O2 Sat by Pulse Oximetry (%) Laboratory Tests 03/18/18 03/19/18 03/19/18 22:20 07:45 07:45 WBC 3.9 L RBC 4.63 Hgb 13.4 Hct 40.4 MCV 87.3 MCH 29.1 MCHC 33.3 RDW 13.9 Plt Count 273 D MPV 9.6 Sodium 140 Potassium 4.0 Chloride 105 Carbon Dioxide 27 Anion Gap 8 BUN 14 Creatinine 1.3 Creat Clearance w eGFR 57.53 Random Glucose 86 Calcium 8.5 Total Bilirubin 0.4 D AST 19 D ALT 20 D Alkaline Phosphatase 91 Total Protein 7.7 Albumin 3.3 L Urine Color Yellow Urine Appearance Clear Urine pH 5.0 Ur Specific [place] 1.015 Urine Protein Negative Urine Glucose (UA) Negative Urine Ketones Negative Urine Blood Negative Urine Nitrite Negative Urine Bilirubin Negative Urine Urobilinogen Negative Ur Leukocyte Esterase Negative RPR Titer 03/19/18 03/21/18 07:45 07:45 WBC RBC Hgb Hct MCV MCH MCHC RDW Plt Count MPV Sodium 137 Potassium 4.0 Chloride 100 Carbon Dioxide 33 H D Anion Gap 4 L BUN 13 Creatinine 1.4 H Creat Clearance w eGFR Random Glucose 88 Calcium 8.9 Total Bilirubin AST ALT Alkaline Phosphatase Total Protein Albumin Urine Color Urine Appearance Urine pH Ur Specific [place] Urine Protein Urine Glucose (UA) Urine Ketones Urine Blood Urine Nitrite Urine Bilirubin Urine Urobilinogen Ur Leukocyte Esterase RPR Titer Nonreactive LABS NOTED. Assessment: 03/22/18 15:31 COMPLETION OF DETOX REGIMEN. Plan: PATIENT SCHEDULED FOR DISCHARGE FROM DETOX UNIT TODAY.
--- NOTE | 2018-03-22 15:40 | DS ---
[facility] Detox Discharge Summary Admission Date: 03/18/18 Discharge Date: 03/22/18 - History Present History: Alcohol Dependence, Cocaine Dependence Additional Comments: PATIENT GOING TO [facility] FOR AFTERCARE. PATIENT WAS DISCHARGED FROM DETOX UNIT IN STABLE MEDICAL CONDITION. Pertinent Past History: HTN, History of CVA, Syncope, Nicotine Dependence. - Physical Exam Results Vital Signs: Vital Signs Temperature 97 F L 03/22/18 09:15 Pulse Rate 90 03/22/18 09:15 Respiratory Rate 18 03/22/18 09:15 Blood Pressure 114/75 03/22/18 09:15 O2 Sat by Pulse Oximetry (%) Pertinent Admission Physical Exam Findings: WITHDRAWAL SYMPTOMS. Laboratory Tests 03/18/18 03/19/18 03/19/18 22:20 07:45 07:45 WBC 3.9 L RBC 4.63 Hgb 13.4 Hct 40.4 MCV 87.3 MCH 29.1 MCHC 33.3 RDW 13.9 Plt Count 273 D MPV 9.6 Sodium 140 Potassium 4.0 Chloride 105 Carbon Dioxide 27 Anion Gap 8 BUN 14 Creatinine 1.3 Creat Clearance w eGFR 57.53 Random Glucose 86 Calcium 8.5 Total Bilirubin 0.4 D AST 19 D ALT 20 D Alkaline Phosphatase 91 Total Protein 7.7 Albumin 3.3 L Urine Color Yellow Urine Appearance Clear Urine pH 5.0 Ur Specific [place] 1.015 Urine Protein Negative Urine Glucose (UA) Negative Urine Ketones Negative Urine Blood Negative Urine Nitrite Negative Urine Bilirubin Negative Urine Urobilinogen Negative Ur Leukocyte Esterase Negative RPR Titer 03/19/18 03/21/18 07:45 07:45 WBC RBC Hgb Hct MCV MCH MCHC RDW Plt Count MPV Sodium 137 Potassium 4.0 Chloride 100 Carbon Dioxide 33 H D Anion Gap 4 L BUN 13 Creatinine 1.4 H Creat Clearance w eGFR Random Glucose 88 Calcium 8.9 Total Bilirubin AST ALT Alkaline Phosphatase Total Protein Albumin Urine Color Urine Appearance Urine pH Ur Specific [place] Urine Protein Urine Glucose (UA) Urine Ketones Urine Blood Urine Nitrite Urine Bilirubin Urine Urobilinogen Ur Leukocyte Esterase RPR Titer Nonreactive LABS NOTED. - Treatment Hospital Course: Detox Protocol Followed, Detoxed Safely, Responded well, Discharged Condition Good, Rehab Referral Accepted Patient has Accepted a Rehab Referral to: [facility] ([facility] . - Medication Discharge Medications: Ambulatory Orders Aspirin [ASA -] 81 mg PO DAILY #30 tab.chew 08/09/17 Hydrochlorothiazide [Hctz -] 12.5 mg PO DAILY 03/18/18 - Diagnosis (1) Alcohol dependence with uncomplicated withdrawal Status: Acute (2) Cocaine dependence Status: Chronic Qualifiers: Substance use status: uncomplicated Qualified Code(s): F14.20 - Cocaine dependence, uncomplicated (3) Nicotine dependence Status: Chronic Qualifiers: Nicotine product type: cigarettes Substance use status: uncomplicated Qualified Code(s): F17.210 - Nicotine dependence, cigarettes, uncomplicated (4) Old cerebrovascular accident (CVA) without late effect Status: Chronic (5) Syncope Status: Acute Qualifiers: Syncope type: unspecified Qualified Code(s): R55 - Syncope and collapse - AMA Did Patient Leave Against Medical Advice: No
== END 2018-03-22 12:51 | disposition other institution (70) | DRG 774 ==
LOC: YASAS 13:03 → Y3N 19:17
PROVIDERS: ADMIT Internal Medicine; ATTEND Internal Medicine
PROC: HZ2ZZZZ Detoxification Services for Substance Abuse Treatment (ICD-10-PCS; principal; 2018-03-18)
DX: F10.230 Alcohol dependence with withdrawal, uncomplicated (principal); F14.20 Cocaine dependence, uncomplicated; F17.210 Nicotine dependence, cigarettes, uncomplicated; F19.24 Other psychoactive substance dependence with psychoactive substance-induced mood disorder; I10 Essential (primary) hypertension; N17.9 Acute kidney failure, unspecified; R94.31 Abnormal electrocardiogram [ECG] [EKG]; Z86.73 Personal history of transient ischemic attack (TIA), and cerebral infarction without residual deficits; Z59.0 Homelessness; R55 Syncope and collapse
CPT/HCPCS: 36415; 80048; 80053; 81003; 85027; 86593; 93005; 93010; J0735

== ENCOUNTER 2018-03-22 13:37 | Inpatient (IN) | payer OTHER ==
[2018-03-22] MEDS ORDERED: MAGNESIUM HYDROX 2400MG/30ML ORAL SUSPENSION 30 ML CUP PO PRN (15:43)
[2018-03-22] MEDS ORDERED: ACETAMINOPHEN 325 MG TABLET (FP) PO PRN (15:43)
[2018-03-22] MEDS ORDERED: LOPERAMIDE HCL 2 MG CAPSULE PO PRN (15:43)
[2018-03-22] MEDS ORDERED: MAGNESIUM CITRATE 300 ML BOTTLE PO PRN (15:43)
[2018-03-22] MEDS ORDERED: MENTHOL/PHENOL 1 EACH UD MM PRN (15:43)
[2018-03-22] MEDS ORDERED: P-EPHED 60MG/TRIPROLIDI 2.5MG TABLET PO PRN (15:43)
[2018-03-22] MEDS ORDERED: guaiFENesin/D-METHORPHAN HB 10 ML UNIT-DOSE CUPS PO PRN (15:43)
--- NOTE | 2018-03-22 15:45 | HP ---
[facility] Rehab Assess/Revision - Admission History Admitted to Rehab from: [facility] Date of Admission to Rehab: 03/22/2018 - Vital signs Vital Signs: Vital Signs Period Temp Pulse Resp BP Sys/Borjas Pulse Ox Last 24 Hr 98.2 F 84 20 125/84 - Findings Detox History & Physical reviewed: Yes Concur with findings: Yes Comments/Additional Findings: PATIENT'S MEDICAL / MEDICATION HISTORY REVIEWED PRIOR TO DISCHARGE FROM DETOX UNIT. PATIENT WAS DISCHARGED FROM DETOX UNIT TO BE TAKEN TO REHAB UNIT IN STABLE MEDICAL CONDITION. Inpatient Rehab Admission - Initial Determination Are CD services needed?: Yes Free of communicable disease: Yes Not in need of hospitalization: Yes - Rehab Admission Criteria Previous failed treatment: Yes Comorbidities: Yes Patient is meeting Inpatient Rehab admission criteria:: Yes
[2018-03-22] MEDS ORDERED: diphenhydrAMINE HCL 25 MG CAPSULE (FP) PO ONE (18:30)
--- NOTE | 2018-03-22 18:54 | PN ---
[facility] Progress Note Note: Patient c/o gum pain to left side of mouth. Patient denies fever, SOB and sore throat. Vital Signs Temperature 98.2 F 03/22/18 15:28 Pulse Rate 84 03/22/18 15:28 Respiratory Rate 20 03/22/18 15:28 Blood Pressure 125/84 03/22/18 15:28 O2 Sat by Pulse Oximetry (%) Obj: Oral cavity with tooth decay, oral mucosa moist. Mild inflammation to gums noted. No lesions or ulcerations noted. A/P: Gingivitis Will order Oragel and Chlorhexadine MM increase oral fluids continue to monitor clinically
[2018-03-22] MEDS: CHLORHEXIDINE GLUCONATE 118 ML MOUTHWASH MM SCH (21:35)
[2018-03-22] MEDS: BENZOCAINE 20 % GEL 9 GM TUBE MM PRN (21:36)
[2018-03-22] MEDS: IBUPROFEN 400 MG TABLET (FP) PO PRN (21:36)
[2018-03-22] MEDS: BACITRACIN 0.9 GM PACKET TP SCH (21:36)
[2018-03-22] MEDS: MELATONIN 5 MG TABLETS PO PRN (21:37)
[2018-03-22] MEDS: THIAMINE HCL 100 MG TABLET (FP) PO SCH (21:38)
[2018-03-23] MEDS ORDERED: IBUPROFEN 400 MG TABLET (FP) PO ONE ×2 (01:35)
[2018-03-23] MEDS: IBUPROFEN 400 MG TABLET (FP) PO PRN ×2 (06:23→21:39)
[2018-03-23] MEDS ORDERED: PT OWN MED DRAWER 7, Y5N ONE (09:53)
[2018-03-23] MEDS: HYDROCHLOROTHIAZIDE 12.5 MG CAPSULE (FP) PO SCH (10:01)
[2018-03-23] MEDS: PRENATAL VITAMINS W/ FOLIC ACID TABLET (FP) PO SCH (10:01)
[2018-03-23] MEDS: ASPIRIN 81 MG CHEWABLE TABLETS PO SCH (10:01)
[2018-03-23] MEDS: BACITRACIN 0.9 GM PACKET TP SCH ×2 (10:01→21:40)
[2018-03-23] MEDS: CHLORHEXIDINE GLUCONATE 118 ML MOUTHWASH MM SCH ×2 (10:02→21:40)
[2018-03-23] MEDS: BENZOCAINE 20 % GEL 9 GM TUBE MM PRN ×2 (10:02→21:40)
--- NOTE | 2018-03-23 12:09 | PN ---
[facility] Progress Note Note: due to severe toothache patient was not able to be interviewed.
--- NOTE | 2018-03-23 15:49 | PN ---
[facility] Progress Note Note: continues to c/o of toothache Vital Signs Temperature 97.3 F L 03/23/18 06:54 Pulse Rate 74 03/23/18 10:00 Respiratory Rate 18 03/23/18 10:00 Blood Pressure 125/69 03/23/18 10:00 O2 Sat by Pulse Oximetry (%) continue anbesol PRN ibuprofen 800mg TID PRN continue to monitor
[2018-03-23] MEDS: MELATONIN 5 MG TABLETS PO PRN (21:39)
[2018-03-23] MEDS: THIAMINE HCL 100 MG TABLET (FP) PO SCH (21:39)
[2018-03-24] MEDS: HYDROCHLOROTHIAZIDE 12.5 MG CAPSULE (FP) PO SCH (10:25)
[2018-03-24] MEDS: PRENATAL VITAMINS W/ FOLIC ACID TABLET (FP) PO SCH (10:25)
[2018-03-24] MEDS: ASPIRIN 81 MG CHEWABLE TABLETS PO SCH (10:25)
[2018-03-24] MEDS: CHLORHEXIDINE GLUCONATE 118 ML MOUTHWASH MM SCH ×2 (10:26→21:55)
[2018-03-24] MEDS: BACITRACIN 0.9 GM PACKET TP SCH ×2 (10:27→21:55)
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
[2018-03-24] MEDS: THIAMINE HCL 100 MG TABLET (FP) PO SCH (21:55)
[2018-03-24] MEDS: IBUPROFEN 400 MG TABLET (FP) PO PRN (21:57)
[2018-03-25] MEDS ORDERED: PT OWN MED DRAWER 7, Y5N ONE (09:14)
[2018-03-25] MEDS: HYDROCHLOROTHIAZIDE 12.5 MG CAPSULE (FP) PO SCH (10:01)
[2018-03-25] MEDS: ASPIRIN 81 MG CHEWABLE TABLETS PO SCH (10:01)
[2018-03-25] MEDS: BACITRACIN 0.9 GM PACKET TP SCH ×2 (10:01→22:01)
[2018-03-25] MEDS: CHLORHEXIDINE GLUCONATE 118 ML MOUTHWASH MM SCH ×2 (10:01→22:00)
[2018-03-25] MEDS: PRENATAL VITAMINS W/ FOLIC ACID TABLET (FP) PO SCH (10:01)
[2018-03-25] MEDS: THIAMINE HCL 100 MG TABLET (FP) PO SCH (22:00)
[2018-03-25] MEDS: BENZOCAINE 20 % GEL 9 GM TUBE MM PRN (22:01)
[2018-03-26] MEDS: HYDROCHLOROTHIAZIDE 12.5 MG CAPSULE (FP) PO SCH (10:05)
[2018-03-26] MEDS: PRENATAL VITAMINS W/ FOLIC ACID TABLET (FP) PO SCH (10:05)
[2018-03-26] MEDS: ASPIRIN 81 MG CHEWABLE TABLETS PO SCH (10:05)
[2018-03-26] MEDS: CHLORHEXIDINE GLUCONATE 118 ML MOUTHWASH MM SCH ×2 (10:05→21:30)
[2018-03-26] MEDS: BACITRACIN 0.9 GM PACKET TP SCH ×2 (10:05→21:29)
[2018-03-26] MEDS: THIAMINE HCL 100 MG TABLET (FP) PO SCH (21:29)
[2018-03-26] MEDS: IBUPROFEN 400 MG TABLET (FP) PO PRN (21:32)
[2018-03-27] MEDS: ASPIRIN 81 MG CHEWABLE TABLETS PO SCH (10:18)
[2018-03-27] MEDS: PRENATAL VITAMINS W/ FOLIC ACID TABLET (FP) PO SCH (10:18)
[2018-03-27] MEDS: HYDROCHLOROTHIAZIDE 12.5 MG CAPSULE (FP) PO SCH (10:18)
[2018-03-27] MEDS: CHLORHEXIDINE GLUCONATE 118 ML MOUTHWASH MM SCH ×2 (10:19→21:39)
[2018-03-27] MEDS: BACITRACIN 0.9 GM PACKET TP SCH ×2 (10:19→21:39)
[2018-03-27] MEDS: THIAMINE HCL 100 MG TABLET (FP) PO SCH (21:40)
[2018-03-28] MEDS: PRENATAL VITAMINS W/ FOLIC ACID TABLET (FP) PO SCH (09:54)
[2018-03-28] MEDS: HYDROCHLOROTHIAZIDE 12.5 MG CAPSULE (FP) PO SCH (09:54)
[2018-03-28] MEDS: ASPIRIN 81 MG CHEWABLE TABLETS PO SCH (09:54)
[2018-03-28] MEDS: MAG HYDROX/AL HYDROX/SIMETH 30 ML UNIT-DOSE CUP PO PRN (09:55)
[2018-03-28] MEDS: BACITRACIN 0.9 GM PACKET TP SCH ×2 (09:55→21:53)
[2018-03-28] MEDS: CHLORHEXIDINE GLUCONATE 118 ML MOUTHWASH MM SCH ×2 (09:55→21:54)
[2018-03-28] MEDS: THIAMINE HCL 100 MG TABLET (FP) PO SCH (21:53)
[2018-03-29] MEDS: HYDROCHLOROTHIAZIDE 12.5 MG CAPSULE (FP) PO SCH (09:56)
[2018-03-29] MEDS: ASPIRIN 81 MG CHEWABLE TABLETS PO SCH (09:56)
[2018-03-29] MEDS: MAG HYDROX/AL HYDROX/SIMETH 30 ML UNIT-DOSE CUP PO PRN (09:56)
[2018-03-29] MEDS: PRENATAL VITAMINS W/ FOLIC ACID TABLET (FP) PO SCH (09:56)
[2018-03-29] MEDS: CHLORHEXIDINE GLUCONATE 118 ML MOUTHWASH MM SCH ×2 (09:56→21:34)
[2018-03-29] MEDS: BACITRACIN 0.9 GM PACKET TP SCH ×2 (09:56→21:33)
[2018-03-29] MEDS ORDERED: DIPHENOXYLATE 2.5/ATROPINE.025 1 COMBO TABLET PO ONE (15:03)
--- NOTE | 2018-03-29 15:07 | PN ---
S Progress Note Note: Patient c/o indigestion, watery diarrhea and bloating x 3 days. Pt given Mylanta with little relief. Did not want immodium as he states medication did not help in past. Patient medically stable. In no acute distress. Skin warm and dry. Abdomen soft, BS+, NT. Ext no edema. Will order one time dose of Lomotil and continue to monitor clinically. Vital Signs Temperature 98.3 F 03/29/18 06:57 Pulse Rate 97 H 03/29/18 06:57 Respiratory Rate 18 03/29/18 06:57 Blood Pressure 126/69 03/29/18 06:57 O2 Sat by Pulse Oximetry (%)
[2018-03-29] MEDS: THIAMINE HCL 100 MG TABLET (FP) PO SCH (21:34)
[2018-03-30] MEDS: BACITRACIN 0.9 GM PACKET TP SCH ×2 (10:48→21:55)
[2018-03-30] MEDS: MAG HYDROX/AL HYDROX/SIMETH 30 ML UNIT-DOSE CUP PO PRN ×2 (10:48→21:57)
[2018-03-30] MEDS: CHLORHEXIDINE GLUCONATE 118 ML MOUTHWASH MM SCH ×2 (10:48→21:56)
[2018-03-30] MEDS: ASPIRIN 81 MG CHEWABLE TABLETS PO SCH (10:49)
[2018-03-30] MEDS: PRENATAL VITAMINS W/ FOLIC ACID TABLET (FP) PO SCH (10:49)
[2018-03-30] MEDS: HYDROCHLOROTHIAZIDE 12.5 MG CAPSULE (FP) PO SCH (10:49)
[2018-03-30] MEDS: THIAMINE HCL 100 MG TABLET (FP) PO SCH (21:55)
[2018-03-30] MEDS ORDERED: PT OWN MED DRAWER 7, Y5N ONE (23:15)
[2018-03-31] MEDS ORDERED: PT OWN MED DRAWER 7, Y5N ONE (09:01)
[2018-03-31] MEDS: ASPIRIN 81 MG CHEWABLE TABLETS PO SCH (09:42)
[2018-03-31] MEDS: PRENATAL VITAMINS W/ FOLIC ACID TABLET (FP) PO SCH (09:43)
[2018-03-31] MEDS: CHLORHEXIDINE GLUCONATE 118 ML MOUTHWASH MM SCH ×2 (09:43→21:26)
[2018-03-31] MEDS: BACITRACIN 0.9 GM PACKET TP SCH ×2 (09:43→21:25)
[2018-03-31] MEDS: HYDROCHLOROTHIAZIDE 12.5 MG CAPSULE (FP) PO SCH (09:43)
[2018-03-31] MEDS: MAG HYDROX/AL HYDROX/SIMETH 30 ML UNIT-DOSE CUP PO PRN (09:45)
[2018-03-31] MEDS: THIAMINE HCL 100 MG TABLET (FP) PO SCH (21:25)
[2018-04-01] MEDS: HYDROCHLOROTHIAZIDE 12.5 MG CAPSULE (FP) PO SCH (09:50)
[2018-04-01] MEDS: PRENATAL VITAMINS W/ FOLIC ACID TABLET (FP) PO SCH (09:50)
[2018-04-01] MEDS: ASPIRIN 81 MG CHEWABLE TABLETS PO SCH (09:50)
[2018-04-01] MEDS: BACITRACIN 0.9 GM PACKET TP SCH ×2 (09:50→21:40)
[2018-04-01] MEDS: CHLORHEXIDINE GLUCONATE 118 ML MOUTHWASH MM SCH ×2 (09:50→21:40)
[2018-04-01] MEDS: MAG HYDROX/AL HYDROX/SIMETH 30 ML UNIT-DOSE CUP PO PRN (09:53)
[2018-04-01] MEDS: THIAMINE HCL 100 MG TABLET (FP) PO SCH (21:40)
[2018-04-02] MEDS: BACITRACIN 0.9 GM PACKET TP SCH ×2 (09:47→21:41)
[2018-04-02] MEDS: CHLORHEXIDINE GLUCONATE 118 ML MOUTHWASH MM SCH ×2 (09:47→21:41)
[2018-04-02] MEDS: ASPIRIN 81 MG CHEWABLE TABLETS PO SCH (09:47)
[2018-04-02] MEDS: PRENATAL VITAMINS W/ FOLIC ACID TABLET (FP) PO SCH (09:47)
[2018-04-02] MEDS: HYDROCHLOROTHIAZIDE 12.5 MG CAPSULE (FP) PO SCH (09:47)
[2018-04-02] MEDS: THIAMINE HCL 100 MG TABLET (FP) PO SCH (21:40)
[2018-04-03] MEDS: MAG HYDROX/AL HYDROX/SIMETH 30 ML UNIT-DOSE CUP PO PRN (04:21)
[2018-04-03 07:03] VITALS: TEMP 98.1
[2018-04-03] MEDS ORDERED: CYCLOBENZAPRINE HCL 10 MG TABLET (FP) PO ONE (08:37)
--- NOTE | 2018-04-03 09:34 | PN ---
S Progress Note (SOAP) Subjective: NURSE JOY AND KOLBY CALLED TO SEE THIS PT WHO HAS BEEN C/O SEVERE UNRELENTING ABDOMINAL PAIN SINCE TUESDAY. PT REPORTS HE HAS ASSOCIATED DIARRHEA WITH CRAMPS /PAIN AND "MAYBE BLOOD IN IT". PT IS VERY RESTLESS,ANGRY,AGITATED AND SAYS HE WANTS TO GO TO THE ER. PT IS A 52 Y/O AA/MALE WHO IS ADMITTED TO REHAB FOR AFTER ALCOHOL DETOX HERE. HX HTN ON HYDROCHLOROTHIAZIDE 12.5 MG DAILY. DENIED PREVIOUS HX OF GI . Objective: 04/03/18 09:34 ALERT O X 3 Vital Signs 04/03/18 04/03/18 03:30 07:02 Temperature 98.1 F Pulse Rate 88 Respiratory 18 18 Rate Blood Pressure 110/84 Assessment: 04/03/18 09:35 ABDOMINAL PAIN Plan: TRANSFER TO [facility] ER VIA AMBULANCE FOR FURTHER EVALUATION AND POSSIBLE TREATMENT. SPOKE TO NICHO CALLAWAY AT THE ER.
[2018-04-03 10:41] VITALS: BP 124/95; PULSE 95
[2018-04-03] MEDS: ASPIRIN 81 MG CHEWABLE TABLETS PO SCH (11:04)
[2018-04-03] MEDS: BACITRACIN 0.9 GM PACKET TP SCH ×2 (11:04→22:44)
[2018-04-03] MEDS: CHLORHEXIDINE GLUCONATE 118 ML MOUTHWASH MM SCH ×2 (11:04→22:44)
[2018-04-03] MEDS: PRENATAL VITAMINS W/ FOLIC ACID TABLET (FP) PO SCH (11:05)
[2018-04-03] MEDS: HYDROCHLOROTHIAZIDE 12.5 MG CAPSULE (FP) PO SCH (11:05)
[2018-04-03] MEDS: CYCLOBENZAPRINE HCL 10 MG TABLET (FP) PO SCH ×2 (15:18→22:44)
[2018-04-03] MEDS: THIAMINE HCL 100 MG TABLET (FP) PO SCH (22:45)
== END 2018-04-03 13:00 | disposition short-term general hospital (02) | DRG 772 ==
LOC: YASAS 13:37 → Y3W 13:38
PROVIDERS: ADMIT Psychiatry & Neurology Psychiatry; ATTEND Psychiatry & Neurology Psychiatry
PROC: HZ42ZZZ Group Counseling for Substance Abuse Treatment, Cognitive-Behavioral (ICD-10-PCS; principal; 2018-03-22)
DX: F10.20 Alcohol dependence, uncomplicated (principal); F14.20 Cocaine dependence, uncomplicated; I10 Essential (primary) hypertension; K05.10 Chronic gingivitis, plaque induced; R10.9 Unspecified abdominal pain; R19.7 Diarrhea, unspecified; Z86.73 Personal history of transient ischemic attack (TIA), and cerebral infarction without residual deficits; Z91.013 Allergy to seafood; Z91.048 Other nonmedicinal substance allergy status; Z59.0 Homelessness

== ENCOUNTER 2018-04-03 10:11 | Observation (INO) | payer OTHER ==
[2018-04-03] MEDS ORDERED: SODIUM CHLORIDE 1,000 ML IV STA ×2 (11:26→14:23)
[2018-04-03 11:52] LABS: HEMATOCRIT 49.4 % (35.4-49); MCH 28.8 pg (25.7-33.7); MCHC 34.4 g/dl (32.0-35.9); MEAN CELL VOLUME 83.6 fl (80-96); MEAN PLT VOLUME 9.1 fl (7.5-11.1); PLATELET COUNT 333 K/MM3 (134-434); RBC 5.91 M/mm3 (4.00-5.60); RDW 13.9 % (11.9-15.9)
[2018-04-03 12:06] LABS: ALBUMIN 4.1 g/dl (3.4-5.0); ANION GAP 8 (8-16); BILIRUBIN,TOTAL 0.8 mg/dL (0.2-1.0); BLOOD UREA NITROGEN 28 mg/dL (7-18); CALCIUM 10.1 mg/dL (8.5-10.1); CHLORIDE 90 mmol/L (98-107); CO2 34 mmol/L (21-32); CREATININE 1.9 mg/dL (0.7-1.3); GLUCOSE,RANDOM 89 mg/dL (74-106); LIPASE 64 U/L (73-393); POTASSIUM 3.5 mmol/L (3.5-5.1); SGOT/AST 20 U/L (15-37); SGPT/ALT 36 U/L (12-78); SODIUM 132 mmol/L (136-145)
[2018-04-03 12:07] LABS: ALK PHOS 143 U/L (45-117)
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
[2018-04-03] MEDS ORDERED: ACETAMINOPHEN 325 MG TABLET (FP) PO ONE (12:16)
[2018-04-03] MEDS ORDERED: ACETAMINOPHEN 325 MG TABLET (FP) ONE (12:32)
--- NOTE | 2018-04-03 13:13 | PDOC ---
Attending Attestation - Resident Resident Name: Jonathan Darby - ED Attending Attestation I have performed the following: I have examined & evaluated the patient, The case was reviewed & discussed with the resident, I agree w/resident's findings & plan, Exceptions are as noted - HPI HPI: 04/03/18 13:18 The patient is a 52-year-old male, with a past medical history of alcohol and cocaine dependence, who sent from [facility] for 2 weeks of left lower quadrant pain, nausea, and vomiting. He describes the pain as constant, 10/10 in severity, sharp in sensation, with no radiation. The patient is unsure if he noted nausea blood in his emesis or stool. The patient denies any fever, chills, or diarrhea. The patient denies any chest pain or shortness of breath. The patient denies any dysruia, frequency, hematuria Allergies: shellfish derived, pollen extracts. Social History: Denies tobacco use. - Physicial Exam PE: 04/03/18 13:18 GENERAL: Awake, alert, and fully oriented, in no acute distress HEAD: No signs of trauma EYES: PERRLA, EOMI, sclera anicteric, conjunctiva clear ENT: Auricles normal inspection, hearing grossly normal, nares patent, oropharynx clear without exudates. Moist mucosa NECK: Normal ROM, supple, no lymphadenopathy, JVD, or masses LUNGS: Breath sounds equal, clear to auscultation bilaterally. No wheezes, and no crackles HEART: Regular rate and rhythm, normal S1 and S2, no murmurs, rubs or gallops ABDOMEN: (+)Left lower quadrant tenderness to palpation. Soft, normoactive bowel sounds. No guarding, no rebound. No masses EXTREMITIES: Normal range of motion, no edema. No clubbing or cyanosis. No cords, erythema, or tenderness BACK: No midline spinal tenderness in cervical/thoracic/lumbar region NEUROLOGICAL: Normal speech, cranial nerves intact, negative pronator drift, 5/ 5 strength in all 4 extremities, normal sensation to light touch in all 4 extremities, normal cerebellar exam, normal gait, normal reflexes and tone SKIN: Warm, Dry, normal turgor, no rashes or lesions noted. Bedside sono with 1.8cm aorta cross sectionally at the widest. Iliacs <1cm at bifurcation - Medical Decision Making 04/03/18 13:12 52-year-old male presents with 2 weeks of progressive left-sided abdominal pain. Vitals unremarkable. Exam with left lower quadrant tenderness palpation. Differential includes but is not limited to diverticulitis versus colitis versus renal colic versus UTI versus gastroenteritis. Plan: -labs -UA -CTAP -pain control -reassess 04/03/18 13:19 Labs with elevated animal attendants and trainers 1.9, CTAP changed to non con. [employer] bump is new, may pt has renal colic? 04/03/18 14:45 CTAP with nothing acute Persistent abd pain Lactate 2.8 -> fluids pt admitted to dr. Forbes, accepted for admission Case discussed in detail with admitting physician including history, physical exam and ancillary studies. Admitting physician has assumed care for the patient, will follow all pending diagnostics and will complete the evaluation and treatment.
[2018-04-03] MEDS ORDERED: POTASSIUM CHLORIDE TABS 20 MEQ TABLET.ER (FP) PO ONE ×2 (14:23→14:39)
[2018-04-03 15:06] LABS: URINE APPEARANCE SLCLOUDY; URINE BILIRUBIN NEGATIVE (<2.0 mg/dL); URINE BLOOD NEGATIVE (NEGATIVE); URINE COLOR YELLOW; URINE GLUCOSE (UA) NEGATIVE (NEGATIVE); URINE KETONE NEGATIVE (NEGATIVE); URINE LEUK ESTERASE NEGATIVE (NEGATIVE); URINE NITRITE NEGATIVE (NEGATIVE); URINE PROTEIN NEGATIVE (NEGATIVE); URINE UROBILINOGEN NEGATIVE mg/dL (0.2-1.0)
--- NOTE | 2018-04-03 15:56 | CON.GI ---
Consult Consult Specialty:: Gastroenterology Referred by:: Dr. Forbes Reason for Consultation:: Diarrhea - History of Present Illness Chief Complaint: Diarrhea and abdominal pain History of Present Illness: Patient is a 52 year old male who was BIBEMS from [facility] due to abdominal pain and diarrhea. Patient reports for the past two weeks he's had a sharp, nonradiating, constant LLQ abdominal pain with a severity of 8/10 associated with loose stools. Patient denies any alleviating or exacerbating factors. Patient reports having both nonbloody watery diarrhea and loose stools for several weeks. Patient also states having nonbloody nonbilious vomiting yesterday x20-30 times but has not had an episode today. Otherwise, patient denies fever, chills, chest pain, palpitations, shortness of breath, pruritis, jaundice, joint pain, rash, weight loss, change in diet, history of autoimmune diseases, hepatitis, hematochezia, hematemesis, melena, hematuria, dysuria, frequency, urgency, fatigue. 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 Cardio/Vascular: Yes: HTN Renal/: Yes: Renal Inusuff - Past Surgical History Past Surgical History: Yes: Joint Replacement - Alcohol/Substance Use Hx Alcohol Use: Yes (Quit 22 days ago ) History of Substance Use: reports: Cocaine - Smoking History Smoking history: Former smoker Have you smoked in the past 12 months: No Aproximately how many cigarettes per day: 10 - Social History ADL: Independent History of Recent Travel: No <Sonia Topete - Last Filed: 04/03/18 17:28> Home Medications <Sonia Topete - Last Filed: 04/03/18 17:28> <Ander Sandoval - Last Filed: 04/04/18 09:47> - Allergies Allergies/Adverse Reactions: Allergies Allergy/AdvReac Type Severity Reaction Status Date / Time shellfish derived Allergy Severe Swelling Verified 04/03/18 10:57 pollen extracts Allergy Verified 04/03/18 10:57 - Home Medications Home Medications: Ambulatory Orders Aspirin [ASA -] 81 mg PO DAILY #30 tab.chew 08/09/17 Hydrochlorothiazide [Hctz -] 12.5 mg PO DAILY 03/18/18 Family Disease History - Family Disease History Family History: Denies <Sonia Topete - Last Filed: 04/03/18 17:28> Review of Systems - Review of Systems Constitutional: reports: No Symptoms. denies: Chills, Diaphoresis, Fever, Night Sweats Cardiovascular: reports: No Symptoms. denies: Chest Pain, Edema, Palpitations, Shortness of Breath Respiratory: reports: No Symptoms. denies: Cough, Hemoptysis, SOB, Wheezing Gastrointestinal: reports: Abdominal Pain, Diarrhea, Nausea, Vomiting. denies: Constipation, Dysphagia, Melena, Rectal Bleeding, Vomiting Blood Genitourinary: reports: No Symptoms. denies: Burning, Dysuria, Flank Pain, Frequency Neurological: reports: No Symptoms. denies: Change in Speech, Confusion <Sonia Topete - Last Filed: 04/03/18 17:28> Physical Exam-GI Vital Signs: Vital Signs Temperature 97.8 F 04/03/18 15:47 Pulse Rate 61 04/03/18 15:47 Respiratory Rate 18 04/03/18 10:13 Blood Pressure 122/71 04/03/18 15:47 O2 Sat by Pulse Oximetry (%) 100 04/03/18 15:47 Constitutional: Yes: No Distress, Calm. No: Anxious, Diaphoresis, Mild Distress , Moderate Distress, Pallor Eyes: Yes: WNL, Conjunctiva Clear. No: Ptosis, Sclera Icterus HENT: Yes: WNL, Atraumatic, Normocephalic. No: Drooling, Thrush Neck: Yes: WNL, Supple, Trachea Midline. No: Lymphadenopathy, Tenderness Cardiovascular: Yes: WNL, Regular Rate and Rhythm, S1, S2. No: Bradycardia, Tachycardia, Pulse Irregular, JVD, Murmur Respiratory: Yes: WNL, Regular, CTA Bilaterally. No: Accessory Muscle Use, Cough, Rales, Rhonchi, Stridor, Wheezes Gastrointestinal Inspection: Yes: WNL. No: Ascites, Distention, Hernia, Scars ...Auscultate: Yes: Hyperactive Bowel Sounds ...Palpate: Yes: Soft, Tenderness (Upon palpation of LLQ and LUQ). No: Firm/ Rigid, Hepatomegaly ...Percussion: No: Fluid Wave, Tympanitic ...Rectal Exam: Yes: Deferred Extremities: Yes: WNL. No: Calf Tenderness, Cold, Cool, Erythema Edema: No Neurological: Yes: WNL, Alert, Oriented. No: Aphasia, Facial Droop Labs: CBC, [facility] 04/03/18 10:24 04/03/18 10:24 <Sonia Topete - Last Filed: 04/03/18 17:28> Vital Signs: Vital Signs Temperature 97.8 F 04/03/18 15:47 Pulse Rate 61 04/03/18 15:47 Respiratory Rate 18 04/03/18 10:13 Blood Pressure 122/71 04/03/18 15:47 O2 Sat by Pulse Oximetry (%) 100 04/03/18 15:47 Labs: CBC, [facility] 04/03/18 10:24 04/03/18 10:24 <Ander Sandoval - Last Filed: 04/04/18 09:47> Imaging - Results Cat Scan: Report Reviewed, Image Reviewed <Sonia Topete - Last Filed: 04/03/18 17:28> Problem List - Problems (1) Diarrhea Assessment/Plan: Possible gastroenteritis vs. Colitis but patient has had chronic symptoms for several weeks. Will order Stool culture, Ova and parasite, Stool culture, c.diff , and celiac panel. Will continue regular sodium controlled diet and monitor for any worsening symptoms. Continue hydration. Continue daily labs Code(s): R19.7 - DIARRHEA, UNSPECIFIED Qualifiers: Diarrhea type: unspecified type Qualified Code(s): R19.7 - Diarrhea, unspecified (2) Abdominal pain Assessment/Plan: U/S revealed mild sigmoid diverticulosis with no acute diverticulitis Continue hydration Patient has no septic picture Surgery evaluation recommended Code(s): R10.9 - UNSPECIFIED ABDOMINAL PAIN Qualifiers: Abdominal location: left lower quadrant Qualified Code(s): R10.32 - Left lower quadrant pain (3) Diverticulosis Assessment/Plan: U/S revealed mild sigmoid diverticulosis without acute diverticulitis. Patient afebrile, no leukocytosis, lactic acidosis resolved. Will continue current management with no interventions. Continue Hydration and pain control. Surgery evaluation Code(s): K57.90 - DVRTCLOS OF INTEST, PART UNSP, W/O PERF OR ABSCESS W/O BLEED Qualifiers: Diverticulosis site: diverticulosis of large intestine Diverticulosis bleeding: diverticulosis without bleeding Qualified Code(s): K57.30 - Diverticulosis of large intestine without perforation or abscess without bleeding (4) WILLAM (acute kidney injury) Assessment/Plan: Continue to monitor as per primary team and Special Education Assistant Code(s): N17.9 - ACUTE KIDNEY FAILURE, UNSPECIFIED <Snoia Topete - Last Filed: 04/03/18 17:28> - Problems (1) Abdominal pain Code(s): R10.9 - UNSPECIFIED ABDOMINAL PAIN Qualifiers: Abdominal location: left lower quadrant Qualified Code(s): R10.32 - Left lower quadrant pain (2) Diverticulosis Code(s): K57.90 - DVRTCLOS OF INTEST, PART UNSP, W/O PERF OR ABSCESS W/O BLEED Qualifiers: Diverticulosis site: diverticulosis of large intestine Diverticulosis bleeding: diverticulosis without bleeding Qualified Code(s): K57.30 - Diverticulosis of large intestine without perforation or abscess without bleeding (3) Nausea with vomiting Code(s): R11.2 - NAUSEA WITH VOMITING, UNSPECIFIED Qualifiers: Vomiting type: unspecified Vomiting Intractability: non-intractable Qualified Code(s): R11.2 - Nausea with vomiting, unspecified (4) WILLAM (acute kidney injury) Code(s): N17.9 - ACUTE KIDNEY FAILURE, UNSPECIFIED (5) Abnormal EKG Code(s): R94.31 - ABNORMAL ELECTROCARDIOGRAM [ECG] [EKG] (6) Alcohol dependence with uncomplicated withdrawal Code(s): F10.230 - ALCOHOL DEPENDENCE WITH WITHDRAWAL, UNCOMPLICATED (7) Diarrhea Code(s): R19.7 - DIARRHEA, UNSPECIFIED Qualifiers: Diarrhea type: unspecified type Qualified Code(s): R19.7 - Diarrhea, unspecified <Ander Sandoval - Last Filed: 04/04/18 09:47> Assessment/Plan The patient was seen and examined. CAT scan, blood work results reviewed. Assessment and plan discussed with the resident and the patient. <Ander Sandoval - Last Filed: 04/04/18 09:47>
--- NOTE | 2018-04-03 16:25 | EKG ---
Test Reason : Blood Pressure : / mmHG Vent. Rate : 076 BPM Atrial Rate : 076 BPM P-R Int : 148 ms QRS Dur : 132 ms QT Int : 438 ms P-R-T Axes : 075 075 033 degrees QTc Int : 492 ms SINUS RHYTHM WITH PREMATURE ATRIAL COMPLEXES BIATRIAL ENLARGEMENT RIGHT BUNDLE BRANCH BLOCK ABNORMAL ECG WHEN COMPARED WITH ECG OF 18-MAR-2018 20:37, PREMATURE ATRIAL COMPLEXES ARE NOW PRESENT INVERTED T WAVES HAVE REPLACED NONSPECIFIC T WAVE ABNORMALITY IN ANTERIOR LEADS Confirmed by ANAND GARCÍA MD ([id number]) on 04/03/2018 4:25:16 PM Referred By: Confirmed By:ANAND GARCÍA MD
[2018-04-03 16:51] VITALS: BMI 21.7
--- NOTE | 2018-04-03 17:01 | HP ---
Admitting History and Physical - Primary Care Physician PCP: Terrance Forbes - Admission History of Present Illness: 52 year old male with a hx of alcohol dependence and CVA (no residual deficits) presents to the ED from [facility] for 2 weeks of left lower quadrant abdominal pain. He states that his abdominal pain is 10/10, sharp in quality and does not radiate. He has had associated diarrhea for several days. He reports that he may have noticed blood in his stool but he is not sure. Patient additionally says that for the last couple of days, he has had non-bloody, non- bilious vomiting, with his last episode being yesterday. Denies any fevers or chills, chest pain, shortness of breath, headache. 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 - Smoking History Smoking history: Former smoker Have you smoked in the past 12 months: No Aproximately how many cigarettes per day: 10 - Alcohol/Substance Use Hx Alcohol Use: Yes Home Medications - Allergies Allergies/Adverse Reactions: Allergies Allergy/AdvReac Type Severity Reaction Status Date / Time shellfish derived Allergy Severe Swelling Verified 04/03/18 10:57 pollen extracts Allergy Verified 04/03/18 10:57 - Home Medications Home Medications: Ambulatory Orders Aspirin [ASA -] 81 mg PO DAILY #30 tab.chew 08/09/17 Hydrochlorothiazide [Hctz -] 12.5 mg PO DAILY 03/18/18 Physical Examination Vital Signs: Vital Signs Temperature 98.0 F 04/03/18 16:42 Pulse Rate 63 04/03/18 16:42 Respiratory Rate 20 04/03/18 16:42 Blood Pressure 121/66 04/03/18 16:42 O2 Sat by Pulse Oximetry (%) 96 04/03/18 16:42 Constitutional: Yes: No Distress HENT: Yes: Atraumatic Neck: Yes: Supple Cardiovascular: Yes: Regular Rate and Rhythm Respiratory: Yes: CTA Bilaterally Gastrointestinal: Yes: Normal Bowel Sounds, Other (mild discomfort on palpation) Extremities: Yes: WNL Neurological: Yes: Alert, Oriented Labs: CBC, BMP 04/03/18 10:24 04/03/18 10:24 Problem List - Problems (1) Abdominal pain Assessment/Plan: npivf prnpain meds gi and surgery consult Code(s): R10.9 - UNSPECIFIED ABDOMINAL PAIN Qualifiers: Abdominal location: left lower quadrant Qualified Code(s): R10.32 - Left lower quadrant pain (2) Alcohol dependence Assessment/Plan: monitor for withdrawl Code(s): F10.20 - ALCOHOL DEPENDENCE, UNCOMPLICATED Qualifiers: Substance use status: uncomplicated Qualified Code(s): F10.20 - Alcohol dependence, uncomplicated (3) Cocaine dependence Code(s): F14.20 - COCAINE DEPENDENCE, UNCOMPLICATED Qualifiers: Substance use status: uncomplicated Qualified Code(s): F14.20 - Cocaine dependence, uncomplicated (4) Hypertension Code(s): I10 - ESSENTIAL (PRIMARY) HYPERTENSION Qualifiers: Hypertension type: essential hypertension Qualified Code(s): I10 - Essential (primary) hypertension Assessment/Plan Laboratory Tests 04/03/18 04/03/18 04/03/18 10:24 10:24 13:05 WBC 10.0 D RBC 5.91 H D Hgb 17.0 H D Hct 49.4 H D MCV 83.6 MCH 28.8 MCHC 34.4 RDW 13.9 Plt Count 333 D MPV 9.1 Sodium 132 L Potassium 3.5 Chloride 90 L Carbon Dioxide 34 H Anion Gap 8 BUN 28 H D Creatinine 1.9 H D Creat Clearance w eGFR 37.13 Random Glucose 89 Lactic Acid 2.6 H* Calcium 10.1 Total Bilirubin 0.8 D AST 20 ALT 36 D Alkaline Phosphatase 143 H D Total Protein 10.0 H D Albumin 4.1 D Lipase 64 L Urine Color Urine Appearance Urine pH Ur Specific [place] Urine Protein Urine Glucose (UA) Urine Ketones Urine Blood Urine Nitrite Urine Bilirubin Urine Urobilinogen Ur Leukocyte Esterase Ur Random Sodium Urine Creatinine 04/03/18 04/03/18 04/03/18 14:52 14:52 15:55 WBC RBC Hgb Hct MCV MCH MCHC RDW Plt Count MPV Sodium Potassium Chloride Carbon Dioxide Anion Gap BUN Creatinine Creat Clearance w eGFR Random Glucose Lactic Acid 1.6 Calcium Total Bilirubin AST ALT Alkaline Phosphatase Total Protein Albumin Lipase Urine Color Yellow Urine Appearance Slcloudy Urine pH 5.0 Ur Specific [place] 1.015 Urine Protein Negative Urine Glucose (UA) Negative Urine Ketones Negative Urine Blood Negative Urine Nitrite Negative Urine Bilirubin Negative Urine Urobilinogen Negative Ur Leukocyte Esterase Negative Ur Random Sodium < 5 Urine Creatinine 192.0
[2018-04-03] MEDS ORDERED: SODIUM CHLORIDE 1,000 ML IV SCH (17:30)
[2018-04-03] MEDS ORDERED: SODIUM CHLORIDE 0.45%/POT 20 MEQ/1,000 ML INFUS.BAG IV SCH (18:45)
--- NOTE | 2018-04-03 18:50 | CONSULT ---
Consult Consult Specialty:: General Surgery Referred by:: Dr. Forbes Reason for Consultation:: abdominal pain, n/v, diarrhea - History of Present Illness Chief Complaint: L abd pain, n/v, diarrhea History of Present Illness: 52yoM with HTN, h/o CVA with no residual, alcoholism, cocaine abuse, cigarette smoker, had last drink ~2-3 wks ago when he entered [facility] for detox and rehab, also last cigarette, at which time he was having pain from lower right teeth/gums, which was treated with motrin and anbesol. He started having loose stools a few days after getting there, with GI upset, L flank/lower quadrant pain, and was given Mylanta on multiple days, sometimes with effect, sometimes not. He denies any history of problems with dairy products, though there was a question of whether Ensure was contributing. He has continued to take his daily aspirin and HCTZ, per patient, though also had nausea and vomiting at times over the last few days, not directly after meals but consisting of food most times. He last vomited yesterday, and has had loose stools today. He tolerated dinner here on the floor shortly before my arrival (chicken, vegetables, water, etc) and had a loose BM. The pain is described as left flank around to [facility] and earlier today at was severe. He also has been getting cramps in his legs and feeling "cotton-mouthed." He was brought to the ER by ambulance from [facility]. In the ER, he has normal wbc, is dehydrated by labs with elevated H/H, BUN/Cr, and lactate (which decreased after hydration); alk phos is a bit high, UA negative, K a little low, Na, Cl also a bit low. Magnesium is pending. No INR. CT was done without any contrast, showing no acute findings except fluid throughout the colon consistent with diarrheal illness. He was given fluids and admitted to observation on medicine. GI has seen him as well. Stool studies are pending collection. He is feeling less dry and has no nausea since dinner. Surgery is asked to evaluate. 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) Cardio/Vascular: Yes: HTN Psych: Yes: Addictions (EtOH, cocaine) - Past Surgical History Additional Surgical History: plate in jaw, left knee arthroscopy - Alcohol/Substance Use Hx Alcohol Use: Yes (Quit ~03/18/18 ) History of Substance Use: reports: Cocaine (smoked; last use 1m ago) - Smoking History Smoking history: Former smoker Have you smoked in the past 12 months: Yes Aproximately how many cigarettes per day: 10 If you are a former smoker, when did you quit?: 3 wks ago - Social History ADL: Independent History of Recent Travel: No Home Medications - Allergies Allergies/Adverse Reactions: Allergies Allergy/AdvReac Type Severity Reaction Status Date / Time shellfish derived Allergy Severe Swelling Verified 04/03/18 10:57 pollen extracts Allergy Verified 04/03/18 10:57 - Home Medications Home Medications: Ambulatory Orders Aspirin [ASA -] 81 mg PO DAILY #30 tab.chew 08/09/17 Hydrochlorothiazide [Hctz -] 12.5 mg PO DAILY 03/18/18 Family Disease History - Family Disease History Family Disease History: CA: Mother (breast (in her 50s), in remission) Review of Systems - Review of Systems Constitutional: denies: Chills, Fever (but subjectively warm at times) Eyes: reports: Other (wears glasses). denies: Recent Change in Vision HENT: reports: Toothache (lower right front, recently - tx with motrin, anbesol at [facility]). denies: Difficult Swallowing, Throat Pain Neck: denies: Swollen Glands, Tenderness Cardiovascular: reports: Palpitations ("fast heartbeats sometimes"). denies: Chest Pain Respiratory: denies: Cough, SOB Gastrointestinal: reports: Abdominal Pain (with hpi), Diarrhea (with hpi), Nausea (with hpi), Vomiting (with hpi). denies: Constipation Genitourinary: denies: Burning, Dysuria Musculoskeletal: reports: Muscle Cramps (in legs last couple days). denies: Back Pain, Joint Pain, Muscle Pain Integumentary: denies: Change in Color, Rash Neurological: reports: Dizziness (sometimes). denies: Headache Endocrine: reports: Increased Thirst (last couple days) Physical Exam Vital Signs: Vital Signs Temperature 98.0 F 04/03/18 16:42 Pulse Rate 63 04/03/18 16:42 Respiratory Rate 20 06/11/18 16:42 Blood Pressure 121/66 06/11/18 16:42 O2 Sat by Pulse Oximetry (%) 96 04/03/18 16:42 Constitutional: Yes: Well Nourished, No Distress, Calm Eyes: Yes: Conjunctiva Clear, EOM Intact HENT: Yes: Atraumatic, Normocephalic, Other (poor dentition) Neck: Yes: Supple, Trachea Midline Cardiovascular: Yes: Regular Rate and Rhythm. No: Murmur Respiratory: Yes: Regular, CTA Bilaterally Gastrointestinal: Yes: Soft, Hernia (tiny reducible umbilical), Hyperactive Bowel Sounds, Tenderness (LLQ mild, also left flank/posterolateral but not CVA; RLQ refers tenderness to LLQ, no R/G). No: Distention, Vomiting ...Rectal Exam: Yes: Deferred Renal/: No: CVA Tenderness - Left, CVA Tenderness - Right Musculoskeletal: No: Joint Stiffness, Joint Swelling Extremities: No: Cool, Cyanosis Edema: No Peripheral Pulses WNL: Yes Integumentary: No: Jaundice, Rash Neurological: Yes: Alert, Oriented Psychiatric: Yes: Alert, Oriented Labs: CBC, BMP 04/03/18 10:24 04/03/18 10:24 CMP Sodium 132 mmol/L (136-145) L 04/03/18 10:24 Potassium 3.5 mmol/L (3.5-5.1) 04/03/18 10:24 Chloride 90 mmol/L (98-107) L 04/03/18 10:24 Carbon Dioxide 34 mmol/L (21-32) H 04/03/18 10:24 Anion Gap 8 (8-16) 04/03/18 10:24 BUN 28 mg/dL (7-18) H D 04/03/18 10:24 Creatinine 1.9 mg/dL (0.7-1.3) H D 04/03/18 10:24 Creat Clearance w eGFR 37.13 (>60) 04/03/18 10:24 Random Glucose 89 mg/dL (74-106) 04/03/18 10:24 Lactic Acid 1.6 mmol/L (0.0-2.0) 04/03/18 15:55 Calcium 10.1 mg/dL (8.5-10.1) 04/03/18 10:24 Total Bilirubin 0.8 mg/dL (0.2-1.0) D 04/03/18 10:24 AST 20 U/L (15-37) 04/03/18 10:24 ALT 36 U/L (12-78) D 04/03/18 10:24 Alkaline Phosphatase 143 U/L (45-117) H D 04/03/18 10:24 Total Protein 10.0 g/dl (6.4-8.2) H D 04/03/18 10:24 Albumin 4.1 g/dl (3.4-5.0) D 04/03/18 10:24 Lipase 64 U/L (73-393) L 04/03/18 10:24 Urine Test Results Urine Color Yellow 04/03/18 14:52 Urine Appearance Slcloudy 04/03/18 14:52 Urine pH 5.0 (5.0-8.0) 04/03/18 14:52 Ur Specific [place] 1.015 (1.001-1.035) 04/03/18 14:52 Urine Protein Negative (NEGATIVE) 04/03/18 14:52 Urine Glucose (UA) Negative (NEGATIVE) 04/03/18 14:52 Urine Ketones Negative (NEGATIVE) 04/03/18 14:52 Urine Blood Negative (NEGATIVE) 04/03/18 14:52 Urine Nitrite Negative (NEGATIVE) 04/03/18 14:52 Urine Bilirubin Negative (<2.0 mg/dL) 04/03/18 14:52 Ur Leukocyte Esterase Negative (NEGATIVE) 04/03/18 14:52 lactate down from 2.6 K little low, Mg pending BUN/Cr up - likely dehydration Hb up 4g from couple weeks ago Imaging - Results Cat Scan: Report Reviewed, Image Reviewed (images personally reviewed - fluid in colon/bowel, no obstruction, no obvious masses, no diverticulitis or appendicitis, no grossly acute findings) Problem List - Problems (1) Abdominal pain Assessment/Plan: admitted OBS to medicine IVF - changed to add K+ -- would continue at least through am, then d/c when hydrating well and renal function normalized tolerated dinner, so likely ok to continue po as tolerated nonnarcotic pain medication prn Code(s): R10.9 - UNSPECIFIED ABDOMINAL PAIN Qualifiers: Abdominal location: left lower quadrant Qualified Code(s): R10.32 - Left lower quadrant pain (2) Diarrhea Assessment/Plan: check stool studies C. diff, culture, O&P GI also consulted Code(s): R19.7 - DIARRHEA, UNSPECIFIED Qualifiers: Diarrhea type: unspecified type Qualified Code(s): R19.7 - Diarrhea, unspecified (3) Nausea with vomiting Assessment/Plan: consider zofran prn Code(s): R11.2 - NAUSEA WITH VOMITING, UNSPECIFIED Qualifiers: Vomiting type: unspecified Vomiting Intractability: non-intractable Qualified Code(s): R11.2 - Nausea with vomiting, unspecified (4) Alcohol dependence Assessment/Plan: Dr. Ramirez consulted already detoxed check Magnesium and keep lytes in normal range check PT/INR in am trend labs Code(s): F10.20 - ALCOHOL DEPENDENCE, UNCOMPLICATED Qualifiers: Substance use status: uncomplicated Qualified Code(s): F10.20 - Alcohol dependence, uncomplicated (5) Hypertension Assessment/Plan: hold HCTZ consider alternative class of medication monitor BP Code(s): I10 - ESSENTIAL (PRIMARY) HYPERTENSION Qualifiers: Hypertension type: essential hypertension Qualified Code(s): I10 - Essential (primary) hypertension
[2018-04-03] MEDS: SODIUM CHLORIDE 0.9%/KCL 20 MEQ/1,000 ML INFUS.BAG IV SCH (20:55)
[2018-04-04 08:07] LABS: BASO % 0.3 % (0-2.0); EOS % 53.2 % (0-4.5); HEMATOCRIT 36.7 % (35.4-49); HEMOGLOBIN 12.7 GM/dL (11.7-16.9); LYMPH % 13.6 % (8-40); MCH 28.8 pg (25.7-33.7); MCHC 34.6 g/dl (32.0-35.9); MEAN CELL VOLUME 83.3 fl (80-96); MONO % 9.5 % (3.8-10.2); NEUT % 23.4 % (42.8-82.8); PLATELET COUNT 253 K/MM3 (134-434); RDW 13.8 % (11.9-15.9); WHITE BLOOD COUNT 6.7 K/mm3 (4.0-10.0)
[2018-04-04 08:18] LABS: INR 1.21 (0.82-1.09); PROTHROMBIN TIME (PATIENT) 13.7 SEC (9.7-13.0)
[2018-04-04 08:19] LABS: CHLORIDE 100 mmol/L (98-107); POTASSIUM 3.7 mmol/L (3.5-5.1); SODIUM 137 mmol/L (136-145)
[2018-04-04 09:09] LABS: ALBUMIN 2.9 g/dl (3.4-5.0); ALK PHOS 93 U/L (45-117); ANION GAP 9 (8-16); BILIRUBIN,TOTAL 1.1 mg/dL (0.2-1.0); BLOOD UREA NITROGEN 21 mg/dL (7-18); CALCIUM 8.5 mg/dL (8.5-10.1); CO2 28 mmol/L (21-32); CREATININE 1.1 mg/dL (0.7-1.3); GLUCOSE,RANDOM 74 mg/dL (74-106); SGOT/AST 22 U/L (15-37); SGPT/ALT 31 U/L (12-78); TOT PROT 6.9 g/dl (6.4-8.2)
[2018-04-04] MEDS: SODIUM CHLORIDE 0.9%/KCL 20 MEQ/1,000 ML INFUS.BAG IV SCH (09:41)
[2018-04-04 10:47] LABS: ACANTHOCYTES 0; ANISOCYTOSIS 0; HELMET CELLS 0; HOWELL-JOLLY BODIES 0; MACROCYTOSIS 0; OVALOCYTE 0; PLATELET ESTIMATE NORMAL; ROULEAU 0; SICKELED CELLS 0; TARGET CELLS 0; TEAR DROP CELLS 0; TOXIC GRANULATION 0
--- NOTE | 2018-04-04 14:36 | CON.ID ---
Consult Consult Specialty:: infectious diseases Reason for Consultation:: eosinophilia,dirrhoea,abd pain - History of Present Illness History of Present Illness: 52 year old male with a hx of alcohol dependence and CVA (no residual deficits) from [facility] admitted for 2 weeks of left lower quadrant abdominal pain. Initially his abd pain was very bad but currently he has no complaints He has had associated diarrhea for several days. and still continues to have it.He reports that he may have noticed blood in his stool but he is not sure. Patient additionally says that for the last couple of days, he has had non- bloody, non-bilious vomiting, with his last episode being yesterday. Denies any fevers or chills, chest pain, shortness of breath, headache. 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) Cardio/Vascular: Yes: HTN Renal/: Yes: Renal Inusuff Psych: Yes: Addictions (EtOH, cocaine) - Past Surgical History Past Surgical History: Yes: Joint Replacement Additional Surgical History: plate in jaw, left knee arthroscopy - Alcohol/Substance Use Hx Alcohol Use: Yes (Quit ~03/18/18 ) History of Substance Use: reports: Cocaine (smoked; last use 1m ago) - Smoking History Smoking history: Former smoker Have you smoked in the past 12 months: Yes Aproximately how many cigarettes per day: 10 If you are a former smoker, when did you quit?: 3 wks ago - Social History ADL: Independent History of Recent Travel: No Home Medications - Allergies Allergies/Adverse Reactions: Allergies Allergy/AdvReac Type Severity Reaction Status Date / Time shellfish derived Allergy Severe Swelling Verified 04/03/18 10:57 pollen extracts Allergy Verified 04/03/18 10:57 - Home Medications Home Medications: Ambulatory Orders Aspirin [ASA -] 81 mg PO DAILY #30 tab.chew 08/09/17 Hydrochlorothiazide [Hctz -] 12.5 mg PO DAILY 03/18/18 Family Disease History - Family Disease History Family Disease History: CA: Mother (breast (in her 50s), in remission) Review of Systems - Review of Systems Constitutional: reports: No Symptoms Eyes: reports: No Symptoms HENT: reports: No Symptoms Neck: reports: No Symptoms Cardiovascular: reports: No Symptoms Respiratory: reports: No Symptoms Gastrointestinal: reports: Abdominal Pain, Diarrhea Genitourinary: reports: No Symptoms Musculoskeletal: reports: No Symptoms Integumentary: reports: No Symptoms Neurological: reports: No Symptoms Endocrine: reports: No Symptoms Hematology/Lymphatic: reports: No Symptoms Psychiatric: reports: No Symptoms Physical Exam Vital Signs: Vital Signs Temperature 98.6 F 04/04/18 09:00 Pulse Rate 59 L 04/04/18 09:00 Respiratory Rate 20 04/04/18 09:00 Blood Pressure 112/61 04/04/18 09:00 O2 Sat by Pulse Oximetry (%) 97 04/04/18 09:00 Constitutional: Yes: Well Nourished, No Distress, Calm Eyes: Yes: Conjunctiva Clear Cardiovascular: Yes: Regular Rate and Rhythm Respiratory: Yes: Regular, CTA Bilaterally Gastrointestinal: Yes: Normal Bowel Sounds, Soft Musculoskeletal: Yes: WNL Extremities: Yes: WNL Neurological: Yes: Alert, Oriented Psychiatric: Yes: Alert, Oriented Labs: CBC, BMP 04/04/18 07:00 04/04/18 07:00 Imaging - Results Cat Scan: Report Reviewed, Image Reviewed Assessment/Plan Problem List - Problems (1) Abdominal pain Code(s): R10.9 - UNSPECIFIED ABDOMINAL PAIN Qualifiers: Abdominal location: left lower quadrant Qualified Code(s): R10.32 - Left lower quadrant pain (2) Alcohol dependence Code(s): F10.20 - ALCOHOL DEPENDENCE, UNCOMPLICATED Qualifiers: Substance use status: uncomplicated Qualified Code(s): F10.20 - Alcohol dependence, uncomplicated (3) Cocaine dependence Code(s): F14.20 - COCAINE DEPENDENCE, UNCOMPLICATED Qualifiers: Substance use status: uncomplicated Qualified Code(s): F14.20 - Cocaine dependence, uncomplicated (4) Hypertension Code(s): I10 - ESSENTIAL (PRIMARY) HYPERTENSION Qualifiers: Hypertension type: essential hypertension Qualified Code(s): I10 - Essential (primary) hypertension 5 eosinophilia plan continue current mgmt cause of eosinophilia are plenty stool for ova and parasite will start oral vanco as patient still having dirhoea patient otherwise stable r/o drugs rest as per the team follow diff regularly
[2018-04-04] MEDS: VANCOMYCIN 250 MG/5 ML ORAL SOLUTION PO SCH (17:14)
--- NOTE | 2018-04-04 17:46 | PN ---
Progress Note, Physician History of Present Illness: Patient seen and examined by me at bedside. No overnight events noted. Patient reports feeling much better than yesterday with adequate pain control of the abdomen. Patient reports having three episodes today of nonbloody watery diarrhea. Otherwise, patient denies fever, chills, chest pain, palpitations, shortness of breath, hematochezia, hematemesis, melena, hematuria, dysuria, frequency, urgency, fatigue. - Current Medication List Current Medications: Active Medications Potassium Chloride/Sodium Chloride (Ns+20 Meq Kcl -) 20 meq in 1,000 mls @ 83 mls/hr IV ASDIR [facility] Last Admin: 04/04/18 09:41 Dose: 83 mls/hr Vancomycin HCl (Vancomycin Oral Solution) 125 mg PO Q6HPO [facility] Last Admin: 04/04/18 17:14 Dose: 125 mg - Objective Vital Signs: Vital Signs Temperature 97.9 F 04/04/18 13:10 Pulse Rate 67 04/04/18 13:10 Respiratory Rate 20 04/04/18 13:10 Blood Pressure 100/52 04/04/18 13:10 O2 Sat by Pulse Oximetry (%) 97 04/04/18 09:00 Constitutional: Yes: Well Nourished, No Distress, Calm Eyes: Yes: WNL, Conjunctiva Clear. No: Sclera Icterus Cardiovascular: Yes: WNL, Regular Rate and Rhythm, S1, S2. No: Tachycardia, Pulse Irregular, JVD Respiratory: Yes: WNL, Regular, CTA Bilaterally. No: Accessory Muscle Use, Rales, Rhonchi, SOB, Tachypnea, Wheezes Gastrointestinal: Yes: WNL, Normal Bowel Sounds, Soft, Tenderness (Mild tenderness upon LLQ) Edema: No Neurological: Yes: WNL, Alert, Oriented. No: Aphasia, Dysarthria, Facial Droop Psychiatric: Yes: WNL, Alert, Oriented Labs: CBC, BMP 04/04/18 07:00 04/04/18 07:00 INR, PTT INR 1.21 (0.82-1.09) H 04/04/18 07:00 04/04/18 04/04/18 07:00 07:00 INR 1.21 H Total Bilirubin 1.1 H D AST 22 ALT 31 Alkaline Phosphatase 93 D Problem List - Problems (1) Diarrhea Code(s): R19.7 - DIARRHEA, UNSPECIFIED Qualifiers: Diarrhea type: unspecified type Qualified Code(s): R19.7 - Diarrhea, unspecified (2) Abdominal pain Code(s): R10.9 - UNSPECIFIED ABDOMINAL PAIN Qualifiers: Abdominal location: left lower quadrant Qualified Code(s): R10.32 - Left lower quadrant pain (3) Diverticulosis Code(s): K57.90 - DVRTCLOS OF INTEST, PART UNSP, W/O PERF OR ABSCESS W/O BLEED Qualifiers: Diverticulosis site: diverticulosis of large intestine Diverticulosis bleeding: diverticulosis without bleeding Qualified Code(s): K57.30 - Diverticulosis of large intestine without perforation or abscess without bleeding (4) WILLAM (acute kidney injury) Code(s): N17.9 - ACUTE KIDNEY FAILURE, UNSPECIFIED Impression/Plan Impression/Plan: Patient found to have positive C.diff antigen with negative toxin. However, patient continues to have diarrhea with three episodes of nonbloody watery diarrhea. Discussed case with ID who started patient on Oral Vancomycin. Stool culture, O&P, and celiac panel pending. Patient has elevated Eosinophils on CBC, which might be due to possible parasite/infection, will need to follow up on O&P. Continue hydration, sodium controlled diet, and daily labs. Will continue current management with no GI interventions at this time. Visit type - Emergency Visit Emergency Visit: Yes ED Registration Date: 04/03/18 Care time: The patient presented to the Emergency Department on the above date and was hospitalized for further evaluation of their emergent condition. - New Patient This patient is new to me today: Yes Date on this admission: 04/03/18 - Critical Care Critical Care patient: No
--- NOTE | 2018-04-04 18:01 | PN ---
Progress Note, Physician History of Present Illness: Pt with diarrheal illness, LLQ pain. Feeling better, tolerating diet. Still with some residual discomfort, but getting better. Still with loose stools, culture pending. C. diff was + for antigen, - for toxin. ID consulted, started on Vanco po. O&P resent to lab. WBC still normal, but eosinophils at 50% of differential. Pt seen standing in room, about to be transferred to private room. - Current Medication List Current Medications: Active Medications Potassium Chloride/Sodium Chloride (Ns+20 Meq Kcl -) 20 meq in 1,000 mls @ 83 mls/hr IV ASDIR [facility] Last Admin: 04/04/18 09:41 Dose: 83 mls/hr Vancomycin HCl (Vancomycin Oral Solution) 125 mg PO Q6HPO [facility] Last Admin: 04/04/18 17:14 Dose: 125 mg - Objective Vital Signs: Vital Signs Temperature 97.9 F 04/04/18 13:10 Pulse Rate 67 04/04/18 13:10 Respiratory Rate 20 04/04/18 13:10 Blood Pressure 100/52 04/04/18 13:10 O2 Sat by Pulse Oximetry (%) 97 04/04/18 09:00 Constitutional: Yes: Well Nourished, No Distress, Calm Eyes: Yes: Conjunctiva Clear, EOM Intact HENT: Yes: Atraumatic, Normocephalic Gastrointestinal: Yes: Soft, Distention (mild), Tenderness (mild/minimal LLQ/ left lateral/flank area, less than yesterday, no R/G) ...Rectal Exam: Yes: Deferred Musculoskeletal: No: Joint Stiffness, Joint Swelling Extremities: No: Cool, Cyanosis Integumentary: No: Jaundice, Rash Neurological: Yes: Alert, Oriented. No: Unsteady Gait Psychiatric: Yes: Alert, Oriented Labs: CBC, BMP 04/04/18 07:00 04/04/18 07:00 INR, PTT INR 1.21 (0.82-1.09) H 04/04/18 07:00 Abnormal Lab Results 04/04/18 04/04/18 04/04/18 07:00 07:00 07:00 Neutrophils % 23.4 L Neutrophils % (Manual) 29.8 L Eosinophils % 53.2 H* Eosinophils % (Manual) 47.1 H PT with INR 13.70 H INR 1.21 H BUN 21 H D Total Bilirubin 1.1 H D Albumin 2.9 L D Microbiology 04/03/18 20:45 Clostridium difficile Antigen (SILVINO) - Final Stool Clostridium difficile Toxin Assay - Final C. diff positive for antigen, negative for toxin Problem List - Problems (1) Abdominal pain Assessment/Plan: admitted OBS to medicine pain improving tolerating diet nonnarcotic pain medication prn Code(s): R10.9 - UNSPECIFIED ABDOMINAL PAIN Qualifiers: Abdominal location: left lower quadrant Qualified Code(s): R10.32 - Left lower quadrant pain (2) Diarrhea Assessment/Plan: some stool studies still pending still with loose stools started oral Vanco for possible C. diff ID and GI following Code(s): R19.7 - DIARRHEA, UNSPECIFIED Qualifiers: Diarrhea type: unspecified type Qualified Code(s): R19.7 - Diarrhea, unspecified (3) Nausea with vomiting Assessment/Plan: no further N/V Code(s): R11.2 - NAUSEA WITH VOMITING, UNSPECIFIED Qualifiers: Vomiting type: unspecified Vomiting Intractability: non-intractable Qualified Code(s): R11.2 - Nausea with vomiting, unspecified (4) Alcohol dependence Assessment/Plan: Dr. Ramirez consulted magnesium was normal Code(s): F10.20 - ALCOHOL DEPENDENCE, UNCOMPLICATED Qualifiers: Substance use status: uncomplicated Qualified Code(s): F10.20 - Alcohol dependence, uncomplicated (5) Hypertension Assessment/Plan: hold HCTZ consider alternative class of medication monitor BP Code(s): I10 - ESSENTIAL (PRIMARY) HYPERTENSION Qualifiers: Hypertension type: essential hypertension Qualified Code(s): I10 - Essential (primary) hypertension (6) Eosinophilia Assessment/Plan: checking stool for O&P, unclear etiology Code(s): D72.1 - EOSINOPHILIA
--- NOTE | 2018-04-04 19:13 | PN ---
Progress Note, Physician - Current Medication List Current Medications: Active Medications Potassium Chloride/Sodium Chloride (Ns+20 Meq Kcl -) 20 meq in 1,000 mls @ 83 mls/hr IV ASDIR [facility] Last Admin: 04/04/18 09:41 Dose: 83 mls/hr Vancomycin HCl (Vancomycin Oral Solution) 125 mg PO Q6HPO [facility] Last Admin: 04/04/18 17:14 Dose: 125 mg - Objective Vital Signs: Vital Signs Temperature 97.9 F 04/04/18 13:10 Pulse Rate 67 04/04/18 13:10 Respiratory Rate 20 04/04/18 13:10 Blood Pressure 100/52 04/04/18 13:10 O2 Sat by Pulse Oximetry (%) 97 04/04/18 09:00 HENT: Yes: Atraumatic Neck: Yes: Supple Cardiovascular: Yes: Regular Rate and Rhythm Respiratory: Yes: CTA Bilaterally Gastrointestinal: Yes: Normal Bowel Sounds Extremities: Yes: WNL Neurological: Yes: Alert, Oriented Labs: CBC, BMP 04/04/18 07:00 04/04/18 07:00 INR, PTT INR 1.21 (0.82-1.09) H 04/04/18 07:00 Problem List - Problems (1) Abdominal pain Code(s): R10.9 - UNSPECIFIED ABDOMINAL PAIN Qualifiers: Abdominal location: left lower quadrant Qualified Code(s): R10.32 - Left lower quadrant pain (2) Alcohol dependence Code(s): F10.20 - ALCOHOL DEPENDENCE, UNCOMPLICATED Qualifiers: Substance use status: uncomplicated Qualified Code(s): F10.20 - Alcohol dependence, uncomplicated (3) Cocaine dependence Code(s): F14.20 - COCAINE DEPENDENCE, UNCOMPLICATED Qualifiers: Substance use status: uncomplicated Qualified Code(s): F14.20 - Cocaine dependence, uncomplicated (4) Hypertension Code(s): I10 - ESSENTIAL (PRIMARY) HYPERTENSION Qualifiers: Hypertension type: essential hypertension Qualified Code(s): I10 - Essential (primary) hypertension (5) C. difficile colitis Assessment/Plan: on po vancomycin Code(s): A04.72 - ENTEROCOLITIS D/T CLOSTRIDIUM DIFFICILE, NOT SPCF RECUR
[2018-04-04] MEDS ORDERED: SODIUM CHLORIDE 1,000 ML with POTASSIUM CHLORIDE 20 MEQ IVPB SCH (22:45)
[2018-04-05] MEDS: VANCOMYCIN 250 MG/5 ML ORAL SOLUTION PO SCH ×4 (06:06→17:46)
[2018-04-05] MEDS ORDERED: SODIUM CHLORIDE 1,000 ML with POTASSIUM CHLORIDE 20 MEQ IVPB SCH (07:39)
[2018-04-05] MEDS: POTASSIUM CHLORIDE 20 MEQ in SODIUM CHLORIDE 1,000 ML IVPB SCH ×4 (10:18→23:15)
--- NOTE | 2018-04-05 15:30 | PN ---
Progress Note, Physician History of Present Illness: doing well no issues says stool are being formed - Current Medication List Current Medications: Active Medications Potassium Chloride 20 meq/ (Sodium Chloride) 1,010 mls @ 83 mls/hr IVPB Q12H [facility] Last Admin: 04/05/18 11:20 Dose: Not Given Vancomycin HCl (Vancomycin Oral Solution) 125 mg PO Q6HPO [facility] Last Admin: 04/05/18 12:01 Dose: 125 mg - Objective Vital Signs: Vital Signs Temperature 99.2 F 04/05/18 14:26 Pulse Rate 72 04/05/18 14:26 Respiratory Rate 18 04/05/18 14:26 Blood Pressure 129/73 04/05/18 14:26 O2 Sat by Pulse Oximetry (%) 99 04/05/18 10:00 Constitutional: Yes: No Distress, Calm Cardiovascular: Yes: Regular Rate and Rhythm Respiratory: Yes: Regular, CTA Bilaterally Gastrointestinal: Yes: Normal Bowel Sounds, Soft Musculoskeletal: Yes: WNL Extremities: Yes: WNL Neurological: Yes: Alert, Oriented Psychiatric: Yes: Alert, Oriented Labs: CBC, BMP 04/04/18 07:00 04/04/18 07:00 INR, PTT INR 1.21 (0.82-1.09) H 04/04/18 07:00 Assessment/Plan Problem List - Problems (1) Abdominal pain Code(s): R10.9 - UNSPECIFIED ABDOMINAL PAIN Qualifiers: Abdominal location: left lower quadrant Qualified Code(s): R10.32 - Left lower quadrant pain (2) Alcohol dependence Code(s): F10.20 - ALCOHOL DEPENDENCE, UNCOMPLICATED Qualifiers: Substance use status: uncomplicated Qualified Code(s): F10.20 - Alcohol dependence, uncomplicated (3) Cocaine dependence Code(s): F14.20 - COCAINE DEPENDENCE, UNCOMPLICATED Qualifiers: Substance use status: uncomplicated Qualified Code(s): F14.20 - Cocaine dependence, uncomplicated (4) Hypertension Code(s): I10 - ESSENTIAL (PRIMARY) HYPERTENSION Qualifiers: Hypertension type: essential hypertension Qualified Code(s): I10 - Essential (primary) hypertension 5 eosinophilia plan continue current mgmt await results of the stool continue oral vanco patient otherwise stable r/o drugs rest as per the team follow diff regularly
--- NOTE | 2018-04-05 17:38 | PN ---
Progress Note, Physician History of Present Illness: Pt with diarrheal illness, LLQ pain. Feeling better, tolerating diet. Still with some mild residual discomfort, but getting better. Loose stools starting to form up. Culture (salmonella/shigella?) growing some NLF-GNB. C. diff was + for antigen, - for toxin. On Vanco po per ID. O&P pending. Seen and examined in bed. - Current Medication List Current Medications: Active Medications Potassium Chloride 20 meq/ (Sodium Chloride) 1,010 mls @ 83 mls/hr IVPB Q12H [facility] Last Admin: 04/05/18 11:20 Dose: Not Given Lactobacillus Acidophilus (Bacid -) 1 tab PO DAILY [facility] Vancomycin HCl (Vancomycin Oral Solution) 125 mg PO Q6HPO [facility] Last Admin: 04/05/18 12:01 Dose: 125 mg - Objective Vital Signs: Vital Signs Temperature 99.2 F 04/05/18 14:26 Pulse Rate 72 04/05/18 14:26 Respiratory Rate 18 04/05/18 14:26 Blood Pressure 129/73 04/05/18 14:26 O2 Sat by Pulse Oximetry (%) 99 04/05/18 10:00 Constitutional: Yes: Well Nourished, No Distress, Calm Eyes: Yes: Conjunctiva Clear, EOM Intact HENT: Yes: Atraumatic, Normocephalic Gastrointestinal: Yes: Normal Bowel Sounds, Soft, Distention (tympanic upper). No: Tenderness (no significant, much improved), Tenderness, Rebound (or guarding ) ...Rectal Exam: Yes: Deferred Musculoskeletal: No: Joint Stiffness, Joint Swelling Extremities: No: Cool, Cyanosis Integumentary: No: Jaundice, Rash Neurological: Yes: Alert, Oriented Labs: no new labs Microbiology 04/03/18 20:45 Salmonella/Shigella Culture - Preliminary Stool Non Lactose Fermenting Gnb Yersinia Culture - Preliminary NO ENTERIC PATHOGENS, 24 HOURS, ON PRIMARY PLATES Vibrio Culture - Final NO GROWTH OF VIBRIO SPECIES OBTAINED Escherichia coli 0157 Culture - Final NO GROWTH OF E COLI 0157 OBTAINED Problem List - Problems (1) Abdominal pain Assessment/Plan: admitted OBS to medicine pain improved tolerating diet nonnarcotic pain medication prn Code(s): R10.9 - UNSPECIFIED ABDOMINAL PAIN Qualifiers: Abdominal location: left lower quadrant Qualified Code(s): R10.32 - Left lower quadrant pain (2) Diarrhea Assessment/Plan: some stool studies still pending stools starting to form up started oral Vanco for possible C. diff NLF-GNB on culture, pending ID of organism will add Bacid/probiotic ID and GI following no surgical issues identified will follow peripherally Code(s): R19.7 - DIARRHEA, UNSPECIFIED Qualifiers: Diarrhea type: unspecified type Qualified Code(s): R19.7 - Diarrhea, unspecified (3) Nausea with vomiting Assessment/Plan: resolved Code(s): R11.2 - NAUSEA WITH VOMITING, UNSPECIFIED Qualifiers: Vomiting type: unspecified Vomiting Intractability: non-intractable Qualified Code(s): R11.2 - Nausea with vomiting, unspecified (4) Alcohol dependence Assessment/Plan: Dr. Ramirez consulted not seen yet Code(s): F10.20 - ALCOHOL DEPENDENCE, UNCOMPLICATED Qualifiers: Substance use status: uncomplicated Qualified Code(s): F10.20 - Alcohol dependence, uncomplicated (5) Hypertension Assessment/Plan: hold HCTZ consider alternative class of medication monitor BP - has been normal Code(s): I10 - ESSENTIAL (PRIMARY) HYPERTENSION Qualifiers: Hypertension type: essential hypertension Qualified Code(s): I10 - Essential (primary) hypertension (6) Eosinophilia Assessment/Plan: checking stool for O&P, unclear etiology Code(s): D72.1 - EOSINOPHILIA
[2018-04-05] MEDS: LACTOBACILLUS ACIDOPHILUS 1 TABLET PO SCH (17:46)
--- NOTE | 2018-04-05 22:50 | PN ---
Progress Note, Physician - Current Medication List Current Medications: Active Medications Potassium Chloride 20 meq/ (Sodium Chloride) 1,010 mls @ 83 mls/hr IVPB Q12H [facility] Last Admin: 04/05/18 22:30 Dose: Not Given Lactobacillus Acidophilus (Bacid -) 1 tab PO DAILY [facility] Last Admin: 04/05/18 17:46 Dose: 1 tab Vancomycin HCl (Vancomycin Oral Solution) 125 mg PO Q6HPO [facility] Last Admin: 04/05/18 17:46 Dose: 125 mg - Objective Vital Signs: Vital Signs Temperature 99.2 F 04/05/18 18:00 Pulse Rate 68 04/05/18 18:00 Respiratory Rate 18 04/05/18 18:00 Blood Pressure 137/71 04/05/18 18:00 O2 Sat by Pulse Oximetry (%) 99 04/05/18 18:00 Labs: CBC, BMP 04/04/18 07:00 04/04/18 07:00 INR, PTT INR 1.21 (0.82-1.09) H 04/04/18 07:00
[2018-04-06 00:06] LABS: GLIADIN ANTIBODY IGA 18 units (0-19); GLIADIN ANTIBODY IGG 2 units (0-19); TRANSGLUTAMINASE IGG < 2 U/mL (0-5)
[2018-04-06] MEDS: VANCOMYCIN 250 MG/5 ML ORAL SOLUTION PO SCH ×2 (00:37→12:22)
[2018-04-06] MEDS: LACTOBACILLUS ACIDOPHILUS 1 TABLET PO SCH (10:15)
[2018-04-06] MEDS: POTASSIUM CHLORIDE 20 MEQ in SODIUM CHLORIDE 1,000 ML IVPB SCH ×3 (10:15→22:00)
--- NOTE | 2018-04-06 11:14 | PN ---
Progress Note, Physician History of Present Illness: stable no new issues - Current Medication List Current Medications: Active Medications Potassium Chloride 20 meq/ (Sodium Chloride) 1,010 mls @ 83 mls/hr IVPB Q12H [facility] Last Admin: 04/06/18 10:15 Dose: 83 mls/hr Lactobacillus Acidophilus (Bacid -) 1 tab PO DAILY [facility] Last Admin: 04/06/18 10:15 Dose: 1 tab Vancomycin HCl (Vancomycin Oral Solution) 125 mg PO Q6HPO [facility] Last Admin: 04/06/18 00:37 Dose: 125 mg - Objective Vital Signs: Vital Signs Temperature 98.9 F 04/05/18 22:00 Pulse Rate 70 04/05/18 22:00 Respiratory Rate 18 04/05/18 22:00 Blood Pressure 128/68 04/05/18 22:00 O2 Sat by Pulse Oximetry (%) 99 04/05/18 18:00 Constitutional: Yes: No Distress, Calm Cardiovascular: Yes: Regular Rate and Rhythm Respiratory: Yes: Regular, CTA Bilaterally Gastrointestinal: Yes: Normal Bowel Sounds, Soft Musculoskeletal: Yes: WNL Extremities: Yes: WNL Neurological: Yes: Alert, Oriented Psychiatric: Yes: Alert, Oriented Labs: CBC, BMP 04/04/18 07:00 04/04/18 07:00 INR, PTT INR 1.21 (0.82-1.09) H 04/04/18 07:00 Assessment/Plan Problem List - Problems (1) Abdominal pain Code(s): R10.9 - UNSPECIFIED ABDOMINAL PAIN Qualifiers: Abdominal location: left lower quadrant Qualified Code(s): R10.32 - Left lower quadrant pain (2) Alcohol dependence Code(s): F10.20 - ALCOHOL DEPENDENCE, UNCOMPLICATED Qualifiers: Substance use status: uncomplicated Qualified Code(s): F10.20 - Alcohol dependence, uncomplicated (3) Cocaine dependence Code(s): F14.20 - COCAINE DEPENDENCE, UNCOMPLICATED Qualifiers: Substance use status: uncomplicated Qualified Code(s): F14.20 - Cocaine dependence, uncomplicated (4) Hypertension Code(s): I10 - ESSENTIAL (PRIMARY) HYPERTENSION Qualifiers: Hypertension type: essential hypertension Qualified Code(s): I10 - Essential (primary) hypertension 5 eosinophilia plan continue current mgmt await results of the stool continue oral vanco patient otherwise stable r/o drugs rest as per the team follow diff regularly
--- NOTE | 2018-04-06 22:26 | PN ---
Progress Note, Physician History of Present Illness: No new changes - Current Medication List Current Medications: Active Medications Potassium Chloride 20 meq/ (Sodium Chloride) 1,010 mls @ 83 mls/hr IVPB Q12H [facility] Last Admin: 04/06/18 13:45 Dose: Not Given Lactobacillus Acidophilus (Bacid -) 1 tab PO DAILY [facility] Last Admin: 04/06/18 10:15 Dose: 1 tab Vancomycin HCl (Vancomycin Oral Solution) 125 mg PO Q6HPO [facility] Last Admin: 04/06/18 12:22 Dose: 125 mg - Objective Vital Signs: Vital Signs Temperature 98.5 F 04/06/18 18:00 Pulse Rate 62 04/06/18 18:00 Respiratory Rate 20 04/06/18 18:00 Blood Pressure 134/72 04/06/18 18:00 O2 Sat by Pulse Oximetry (%) 99 04/06/18 14:58 Neck: Yes: WNL, Supple Cardiovascular: Yes: WNL, Regular Rate and Rhythm Respiratory: Yes: WNL, Regular, CTA Bilaterally Gastrointestinal: Yes: WNL, Normal Bowel Sounds, Soft Labs: CBC, BMP 04/04/18 07:00 04/04/18 07:00 INR, PTT INR 1.21 (0.82-1.09) H 04/04/18 07:00 Problem List - Problems (1) Diarrhea Assessment/Plan: Stool studies (+) E.Coli As per ID Code(s): R19.7 - DIARRHEA, UNSPECIFIED Qualifiers: Diarrhea type: unspecified type Qualified Code(s): R19.7 - Diarrhea, unspecified (2) Abdominal pain Assessment/Plan: Improved Cont to monitor Code(s): R10.9 - UNSPECIFIED ABDOMINAL PAIN Qualifiers: Abdominal location: left lower quadrant Qualified Code(s): R10.32 - Left lower quadrant pain (3) Nausea with vomiting Assessment/Plan: Resolved Code(s): R11.2 - NAUSEA WITH VOMITING, UNSPECIFIED Qualifiers: Vomiting type: unspecified Vomiting Intractability: non-intractable Qualified Code(s): R11.2 - Nausea with vomiting, unspecified (4) Hypertension Assessment/Plan: BP stable Code(s): I10 - ESSENTIAL (PRIMARY) HYPERTENSION Qualifiers: Hypertension type: essential hypertension Qualified Code(s): I10 - Essential (primary) hypertension
[2018-04-07] MEDS: VANCOMYCIN 250 MG/5 ML ORAL SOLUTION PO SCH ×4 (00:48→17:15)
[2018-04-07] MEDS ORDERED: PT OWN MED DRAWER 7, Y5N ONE (06:15)
[2018-04-07 07:43] LABS: EOS % 43.4 % (0-4.5); HEMATOCRIT 35.5 % (35.4-49); HEMOGLOBIN 12.1 GM/dL (11.7-16.9); LYMPH % 13.9 % (8-40); MCH 28.6 pg (25.7-33.7); MEAN CELL VOLUME 84.2 fl (80-96); MEAN PLT VOLUME 9.1 fl (7.5-11.1); MONO % 9.4 % (3.8-10.2); NEUT % 32.3 % (42.8-82.8); PLATELET COUNT 224 K/MM3 (134-434); RBC 4.21 M/mm3 (4.00-5.60); RDW 13.9 % (11.9-15.9); WHITE BLOOD COUNT 6.8 K/mm3 (4.0-10.0)
[2018-04-07 08:16] LABS: ALBUMIN 2.7 g/dl (3.4-5.0); ANION GAP 5 (8-16); BILIRUBIN,TOTAL 0.2 mg/dL (0.2-1.0); BLOOD UREA NITROGEN 9 mg/dL (7-18); CALCIUM 8.9 mg/dL (8.5-10.1); CHLORIDE 105 mmol/L (98-107); CO2 29 mmol/L (21-32); CREATININE 0.9 mg/dL (0.7-1.3); GLUCOSE,RANDOM 75 mg/dL (74-106); POTASSIUM 4.6 mmol/L (3.5-5.1); SGOT/AST 23 U/L (15-37); SGPT/ALT 43 U/L (12-78); SODIUM 139 mmol/L (136-145); TOT PROT 6.8 g/dl (6.4-8.2)
[2018-04-07 08:17] LABS: ALK PHOS 89 U/L (45-117)
[2018-04-07] MEDS: LACTOBACILLUS ACIDOPHILUS 1 TABLET PO SCH (09:15)
[2018-04-07 09:23] LABS: PLATELET ESTIMATE NORMAL
[2018-04-07] MEDS: POTASSIUM CHLORIDE 20 MEQ in SODIUM CHLORIDE 1,000 ML IVPB SCH (11:37)
--- NOTE | 2018-04-07 13:48 | PN ---
Progress Note, Physician History of Present Illness: doing well no complaints except back pain dirrhoea - Current Medication List Current Medications: Active Medications Potassium Chloride 20 meq/ (Sodium Chloride) 1,010 mls @ 83 mls/hr IVPB Q12H [facility] Last Admin: 04/07/18 11:37 Dose: 83 mls/hr Lactobacillus Acidophilus (Bacid -) 1 tab PO DAILY [facility] Last Admin: 04/07/18 09:15 Dose: 1 tab Vancomycin HCl (Vancomycin Oral Solution) 125 mg PO Q6HPO [facility] Last Admin: 04/07/18 11:37 Dose: 125 mg - Objective Vital Signs: Vital Signs Temperature 98.4 F 04/07/18 08:10 Pulse Rate 68 04/07/18 08:10 Respiratory Rate 18 04/07/18 08:10 Blood Pressure 138/70 04/07/18 08:10 O2 Sat by Pulse Oximetry (%) 98 04/07/18 08:00 Constitutional: Yes: No Distress, Calm Cardiovascular: Yes: Regular Rate and Rhythm Respiratory: Yes: Regular, CTA Bilaterally Gastrointestinal: Yes: Normal Bowel Sounds, Soft Musculoskeletal: Yes: WNL Extremities: Yes: WNL Neurological: Yes: Alert, Oriented Psychiatric: Yes: Alert, Oriented Labs: CBC, BMP 04/07/18 06:10 04/07/18 06:10 INR, PTT INR 1.21 (0.82-1.09) H 04/04/18 07:00 Assessment/Plan Problem List - Problems (1) Abdominal pain Code(s): R10.9 - UNSPECIFIED ABDOMINAL PAIN Qualifiers: Abdominal location: left lower quadrant Qualified Code(s): R10.32 - Left lower quadrant pain (2) Alcohol dependence Code(s): F10.20 - ALCOHOL DEPENDENCE, UNCOMPLICATED Qualifiers: Substance use status: uncomplicated Qualified Code(s): F10.20 - Alcohol dependence, uncomplicated (3) Cocaine dependence Code(s): F14.20 - COCAINE DEPENDENCE, UNCOMPLICATED Qualifiers: Substance use status: uncomplicated Qualified Code(s): F14.20 - Cocaine dependence, uncomplicated (4) Hypertension Code(s): I10 - ESSENTIAL (PRIMARY) HYPERTENSION Qualifiers: Hypertension type: essential hypertension Qualified Code(s): I10 - Essential (primary) hypertension 5 eosinophilia eosinophilia decreased work up negative will need to see heam as out patient no abx except oral vanco for a total of 10 days more
--- NOTE | 2018-04-07 15:31 | DS ---
Physical Examination Vital Signs: Vital Signs Temperature 98.9 F 04/07/18 14:26 Pulse Rate 64 04/07/18 14:26 Respiratory Rate 18 04/07/18 14:26 Blood Pressure 139/75 04/07/18 14:26 O2 Sat by Pulse Oximetry (%) 98 04/07/18 08:00 Constitutional: Yes: No Distress HENT: Yes: Atraumatic Neck: Yes: Supple Cardiovascular: Yes: Regular Rate and Rhythm Respiratory: Yes: CTA Bilaterally Gastrointestinal: Yes: Normal Bowel Sounds Extremities: Yes: WNL Neurological: Yes: Alert, Oriented Labs: CBC, BMP 04/07/18 06:10 04/07/18 06:10 Discharge Summary Reason For Visit: WILLAM Current Active Problems Abdominal pain (Acute) C. difficile colitis (Acute) Diverticulosis (Acute) Eosinophilia (Acute) Nausea with vomiting (Acute) Condition: Stable - Instructions Diet, Activity, Other Instructions: follow up on high eosinophl count with dr prakash Referrals: Judy Ortega MD [Staff Physician] - Michael Prakash MD [Staff Physician] - Disposition: OTHER HEALTHCARE NOT DEFINED - Home Medications Comprehensive Discharge Medication List: Ambulatory Orders Aspirin [ASA -] 81 mg PO DAILY #30 tab.chew 08/09/17 Hydrochlorothiazide [Hctz -] 12.5 mg PO DAILY 03/18/18 Vancomycin HCl 125 mg PO Q6H #30 capsule 04/07/18 dc home
[2018-04-07 19:14] VITALS: BP 131/78; PULSE 69; TEMP 99.2
== END 2018-04-07 19:33 | disposition home or self-care (01) ==
LOC: JER 10:11 → JERBED 14:27 → J6S 16:22
PROVIDERS: ADMIT Internal Medicine; ATTEND Internal Medicine
PROC: 3E033GC Introduction of Other Therapeutic Substance into Peripheral Vein, Percutaneous Approach (ICD-10-PCS; principal; 2018-04-03)
PROC: 3E0337Z Introduction of Electrolytic and Water Balance Substance into Peripheral Vein, Percutaneous Approach (ICD-10-PCS; 2018-04-03)
DX: K57.90 Diverticulosis of intestine, part unspecified, without perforation or abscess without bleeding (principal); A04.72 Enterocolitis due to Clostridium difficile, not specified as recurrent; D72.1 Eosinophilia; R10.32 Left lower quadrant pain; R19.7 Diarrhea, unspecified; R11.2 Nausea with vomiting, unspecified; R94.31 Abnormal electrocardiogram [ECG] [EKG]; N17.9 Acute kidney failure, unspecified; I10 Essential (primary) hypertension; F10.230 Alcohol dependence with withdrawal, uncomplicated; F14.20 Cocaine dependence, uncomplicated; I49.1 Atrial premature depolarization; I45.10 Unspecified right bundle-branch block; Z79.82 Long term (current) use of aspirin; Z91.013 Allergy to seafood; Z86.73 Personal history of transient ischemic attack (TIA), and cerebral infarction without residual deficits; Z59.0 Homelessness
CPT/HCPCS: 36415; 74176-TC; 80053; 81003; 82570; 82784; 83516; 83605; 83690; 83735; 84300; 85025; 85027; 85610; 87045; 87046; 87177; 87186; 87209; 87324; 87449; 93005; 93010; 96361; 96374; 96376; 99283-25; G0378; J3480; J7030

== ENCOUNTER 2019-11-13 13:06 | Inpatient (IN) | payer OTHER ==
[2019-11-13 13:32] VITALS: BMI 26.0
--- NOTE | 2019-11-13 13:57 | HP ---
Screened but not Admitted - Documentation of Visit Screened but not Admitted: Yes Left Prior to Completion of Assessment: No Insurance Authorization Denied: No Patient Does Not Meet Criteria for Admission: No Level of Care Recommended at this Time: Other (needs rehab bed and none available.) Alternative Treatment/Half-Way Info Provided: No Additional Information/Explanation: Breathalyzer zero and urine tox cocaine and benzodiazepine. History not consistently using alcohol from prior admission.
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
[2019-11-13] MEDS ORDERED: LOPERAMIDE HCL 2 MG CAPSULE PO PRN (17:54)
[2019-11-13] MEDS ORDERED: hydrOXYzine PAMOATE 25 MG CAPSULE (FP) PO PRN (17:54)
[2019-11-13] MEDS ORDERED: P-EPHED 60MG/TRIPROLIDI 2.5MG TABLET PO PRN (17:54)
[2019-11-13] MEDS ORDERED: MENTHOL/PHENOL 1 EACH UD MM PRN (17:54)
[2019-11-13] MEDS ORDERED: guaiFENesin 200 MG/10 ML 10 ML UNIT-DOSE CUPS PO PRN (17:54)
[2019-11-13] MEDS ORDERED: MAG HYDROX/AL HYDROX/SIMETH 30 ML UNIT-DOSE CUP PO PRN (17:54)
[2019-11-13] MEDS ORDERED: ACETAMINOPHEN 325 MG TABLET (FP) PO PRN (17:54)
[2019-11-13] MEDS ORDERED: IBUPROFEN 400 MG TABLET (FP) PO PRN (17:54)
[2019-11-13] MEDS ORDERED: MAGNESIUM HYDROX 2400MG/30ML ORAL SUSPENSION 30 ML CUP PO PRN (17:54)
[2019-11-13] MEDS ORDERED: MAGNESIUM CITRATE 300 ML BOTTLE PO PRN (17:54)
[2019-11-13] MEDS ORDERED: MELATONIN 5 MG TABLETS PO PRN (22:00)
[2019-11-13] MEDS ORDERED: THIAMINE HCL 100 MG TABLET (FP) PO SCH (22:00)
[2019-11-14 09:16] VITALS: BP 124/54; PULSE 75; TEMP 98.1
--- NOTE | 2019-11-14 09:46 | DS ---
[facility] Detox Discharge Summary Admission Date: 11/13/19 Discharge Date: 11/14/19 - History Additional Comments: no s/s of withdrawals. pt denies of using alcohol and/ drugs. pt will be d/c today. - Physical Exam Results Vital Signs: Vital Signs Temperature 98.1 F 11/14/19 09:15 Pulse Rate 75 11/14/19 09:15 Respiratory Rate 18 11/14/19 09:15 Blood Pressure 124/54 L 11/14/19 09:15 O2 Sat by Pulse Oximetry (%) Pertinent Admission Physical Exam Findings: Vital Signs Temperature 98.1 F 11/14/19 09:15 Pulse Rate 75 11/14/19 09:15 Respiratory Rate 18 11/14/19 09:15 Blood Pressure 124/54 L 11/14/19 09:15 O2 Sat by Pulse Oximetry (%) - Treatment Hospital Course: Detox Protocol Followed, Detoxed Safely, Responded well, Discharged Condition Good, Rehab Referral Accepted Patient has Accepted a Rehab Referral to: referral provided - Medication Discharge Medications: Ambulatory Orders Aspirin [ASA -] 81 mg PO DAILY #30 tab.chew 08/09/17 Hydrochlorothiazide [Hctz -] 12.5 mg PO DAILY 03/18/18 - Diagnosis (1) WILLAM (acute kidney injury) Current Visit: No Status: Acute (2) Hypertension Current Visit: Yes Status: Chronic Qualifiers: Hypertension type: essential hypertension Qualified Code(s): I10 - Essential (primary) hypertension (3) Substance induced mood disorder Current Visit: No Status: Chronic - AMA Did Patient Leave Against Medical Advice: No
[2019-11-14] MEDS ORDERED: ASPIRIN 81 MG CHEWABLE TABLETS PO SCH (10:00)
[2019-11-14] MEDS ORDERED: PRENATAL VITAMINS W/ FOLIC ACID TABLET (FP) PO SCH (10:00)
[2019-11-14] MEDS ORDERED: HYDROCHLOROTHIAZIDE 12.5 MG CAPSULE (FP) PO SCH (10:00)
[2019-11-14] MEDS ORDERED: PNEUMOCOCCAL 23 VACCINE 0.5 ML VIAL IM ONE (12:00)
[2019-11-14] MEDS ORDERED: FLU VACCINE QUAD 60 MCG/0.5 ML (MDV 19-20) IM ONE (12:00)
[2019-11-14] MEDS ORDERED: PNEUMOC 13-VAL CONJ-DIP CRM/PF 0.5 ML DISP.SYRIN IM ONE (12:00)
[2019-11-14 12:19] LABS: HEMATOCRIT 39.7 % (35.4-49); HEMOGLOBIN 13.2 GM/dL (11.7-16.9); MCH 29.4 pg (25.7-33.7); MCHC 33.4 g/dl (32.0-35.9); MEAN PLT VOLUME 9.5 fl (7.5-11.1); PLATELET COUNT 228 K/MM3 (134-434); RBC 4.51 M/mm3 (4.00-5.60); RDW 13.4 % (11.9-15.9); WHITE BLOOD COUNT 2.4 K/mm3 (4.0-10.0)
[2019-11-14 12:42] LABS: ALBUMIN 3.2 g/dl (3.4-5.0); BILIRUBIN,TOTAL 0.3 mg/dL (0.2-1); CALCIUM 8.6 mg/dL (8.5-10.1); POTASSIUM 4.3 mmol/L (3.5-5.1); TOT PROT 6.5 g/dl (6.4-8.2)
== END 2019-11-14 12:56 | disposition other institution (70) | DRG 774 ==
LOC: YASAS 13:06 → Y5N 17:44 → Y6N 19:00
PROVIDERS: ADMIT Allergy & Immunology; ATTEND Allergy & Immunology
DX: F10.20 Alcohol dependence, uncomplicated (principal); F14.20 Cocaine dependence, uncomplicated; F19.280 Other psychoactive substance dependence with psychoactive substance-induced anxiety disorder; F17.210 Nicotine dependence, cigarettes, uncomplicated; F19.24 Other psychoactive substance dependence with psychoactive substance-induced mood disorder; I10 Essential (primary) hypertension; N17.9 Acute kidney failure, unspecified; Z86.73 Personal history of transient ischemic attack (TIA), and cerebral infarction without residual deficits; Z91.013 Allergy to seafood; Z91.048 Other nonmedicinal substance allergy status; Z59.0 Homelessness
CPT/HCPCS: 36415; 80053; 85027; 86593

== ENCOUNTER 2019-11-14 13:03 | Inpatient (IN) | payer OTHER ==
--- NOTE | 2019-11-14 14:01 | HP ---
[facility] Rehab Assess/Revision - Admission History Admitted to Rehab [facility] - Findings Detox History & Physical reviewed: Yes Concur with findings: Yes Inpatient Rehab Admission - Rehab Decision to Admit Inpatient rehab admission?: Yes - Initial Determination Are CD services needed?: Yes Free of communicable disease: Yes Not in need of hospitalization: Yes - Rehab Admission Criteria Previous failed treatment: Yes Poor recovery environment: Yes Comorbidities: Yes Lacks judgement: Yes Patient is meeting Inpatient Rehab admission criteria:: Yes
[2019-11-14] MEDS ORDERED: ACETAMINOPHEN 325 MG TABLET (FP) PO PRN (14:09)
[2019-11-14] MEDS ORDERED: hydrOXYzine PAMOATE 50 MG CAPSULE (FP) PO PRN (14:09)
[2019-11-14] MEDS ORDERED: guaiFENesin 200 MG/10 ML 10 ML UNIT-DOSE CUPS PO PRN (14:09)
[2019-11-14] MEDS ORDERED: LOPERAMIDE HCL 2 MG CAPSULE PO PRN (14:09)
[2019-11-14] MEDS ORDERED: MAGNESIUM HYDROX 2400MG/30ML ORAL SUSPENSION 30 ML CUP PO PRN (14:09)
[2019-11-14] MEDS ORDERED: P-EPHED 60MG/TRIPROLIDI 2.5MG TABLET PO PRN (14:09)
[2019-11-14] MEDS ORDERED: MAGNESIUM CITRATE 300 ML BOTTLE PO PRN (14:09)
[2019-11-14] MEDS ORDERED: MAG HYDROX/AL HYDROX/SIMETH 30 ML UNIT-DOSE CUP PO PRN (14:09)
[2019-11-14] MEDS ORDERED: MENTHOL/PHENOL 1 EACH UD MM PRN (14:09)
--- NOTE | 2019-11-14 14:23 | PN ---
[facility] Progress Note Note: Pt is a 53 y/o male with a hx of LYDIA-alcohol,cocaine admitted to rehab from [address] [place] [address]. As per Admission notes pt reports prior detox at [facility] one month ago. Pt has been in treatment in this facility in the past. Pt reports he has no current PCP and goes to the [facility] for medical care when needed. PMHx:HTN; Pt reports Right knee pain since 3 days and was at [facility] for the knee pain and given a cane. reports no previous use of cane. Vital Signs - 24 hr 11/14/19 14:01 Temperature 98.2 F Pulse Rate 70 Respiratory 18 Rate Blood Pressure 127/71 Alert o x 3, denies s/h/i nad oob ambulating with a slight limp with a cane extremities/skin:no edema,dry,ashy,varicose veins left LE > right LE. skin intact. Calluses on both lateral side toes. knees:wnl, no swelling, redness or warmth. A/P New rehab patient Maintain safety eucerin cream daily hygiene apply to skin Increase po fluids aveeno Soap daily bath
[2019-11-14] MEDS ORDERED: COLLOIDAL OATMEAL 1 BAR EACH TP PRN (14:39)
[2019-11-14] MEDS ORDERED: METHYL SALICYLATE/MENTHOL OINT 30 GM TUBE TP ONE (15:00)
[2019-11-14] MEDS: METHOCARBAMOL 500 MG TABLET PO PRN (15:04)
[2019-11-14] MEDS: IBUPROFEN 400 MG TABLET (FP) PO PRN (15:04)
[2019-11-14] MEDS: METHYL SALICYLATE/MENTHOL OINT 30 GM TUBE TP SCH (23:24)
[2019-11-14] MEDS: THIAMINE HCL 100 MG TABLET (FP) PO SCH (23:24)
[2019-11-15] MEDS: PRENATAL VITAMINS W/ FOLIC ACID TABLET (FP) PO SCH (10:10)
[2019-11-15] MEDS: HYDROCHLOROTHIAZIDE 12.5 MG CAPSULE (FP) PO SCH (10:10)
[2019-11-15] MEDS: METHOCARBAMOL 500 MG TABLET PO PRN (10:10)
[2019-11-15] MEDS: ASPIRIN 81 MG CHEWABLE TABLETS PO SCH (10:10)
[2019-11-15] MEDS: METHYL SALICYLATE/MENTHOL OINT 30 GM TUBE TP SCH ×2 (10:10→22:05)
[2019-11-15] MEDS: IBUPROFEN 400 MG TABLET (FP) PO PRN (10:11)
[2019-11-15 10:20] LABS: URINE APPEARANCE CLEAR; URINE BILIRUBIN NEGATIVE (NEGATIVE); URINE COLOR YELLOW; URINE GLUCOSE (UA) NEGATIVE (NEGATIVE); URINE KETONE NEGATIVE (NEGATIVE); URINE LEUK ESTERASE NEGATIVE (NEGATIVE); URINE NITRITE NEGATIVE (NEGATIVE); URINE PROTEIN NEGATIVE (NEGATIVE); URINE UROBILINOGEN 0.2 mg/dL (0.2-1.0)
[2019-11-15] MEDS: THIAMINE HCL 100 MG TABLET (FP) PO SCH (22:05)
[2019-11-16] MEDS: PRENATAL VITAMINS W/ FOLIC ACID TABLET (FP) PO SCH (10:24)
[2019-11-16] MEDS: HYDROCHLOROTHIAZIDE 12.5 MG CAPSULE (FP) PO SCH (10:24)
[2019-11-16] MEDS: ASPIRIN 81 MG CHEWABLE TABLETS PO SCH (10:24)
[2019-11-16] MEDS: IBUPROFEN 400 MG TABLET (FP) PO PRN (10:25)
[2019-11-16] MEDS: METHYL SALICYLATE/MENTHOL OINT 30 GM TUBE TP SCH ×2 (10:25→22:30)
[2019-11-16] MEDS: THIAMINE HCL 100 MG TABLET (FP) PO SCH (22:31)
[2019-11-17] MEDS: IBUPROFEN 400 MG TABLET (FP) PO PRN (09:49)
[2019-11-17] MEDS: HYDROCHLOROTHIAZIDE 12.5 MG CAPSULE (FP) PO SCH (09:49)
[2019-11-17] MEDS: ASPIRIN 81 MG CHEWABLE TABLETS PO SCH (09:49)
[2019-11-17] MEDS: PRENATAL VITAMINS W/ FOLIC ACID TABLET (FP) PO SCH (09:49)
[2019-11-17] MEDS: METHOCARBAMOL 500 MG TABLET PO PRN (09:49)
[2019-11-17] MEDS: METHYL SALICYLATE/MENTHOL OINT 30 GM TUBE TP SCH ×2 (10:58→22:21)
[2019-11-17] MEDS: THIAMINE HCL 100 MG TABLET (FP) PO SCH (22:21)
[2019-11-18] MEDS: HYDROCHLOROTHIAZIDE 12.5 MG CAPSULE (FP) PO SCH (10:18)
[2019-11-18] MEDS: ASPIRIN 81 MG CHEWABLE TABLETS PO SCH (10:19)
[2019-11-18] MEDS: IBUPROFEN 400 MG TABLET (FP) PO PRN (10:19)
[2019-11-18] MEDS: METHOCARBAMOL 500 MG TABLET PO PRN (10:19)
[2019-11-18] MEDS: PRENATAL VITAMINS W/ FOLIC ACID TABLET (FP) PO SCH (10:19)
[2019-11-18] MEDS: METHYL SALICYLATE/MENTHOL OINT 30 GM TUBE TP SCH ×2 (11:33→21:17)
[2019-11-18] MEDS: MELATONIN 5 MG TABLETS PO PRN (21:17)
[2019-11-18] MEDS: THIAMINE HCL 100 MG TABLET (FP) PO SCH (21:17)
[2019-11-19] MEDS: METHYL SALICYLATE/MENTHOL OINT 30 GM TUBE TP SCH ×2 (10:29→21:13)
[2019-11-19] MEDS: PRENATAL VITAMINS W/ FOLIC ACID TABLET (FP) PO SCH (10:29)
[2019-11-19] MEDS: ASPIRIN 81 MG CHEWABLE TABLETS PO SCH (10:29)
[2019-11-19] MEDS: HYDROCHLOROTHIAZIDE 12.5 MG CAPSULE (FP) PO SCH (10:29)
[2019-11-19] MEDS: MELATONIN 5 MG TABLETS PO PRN (21:13)
[2019-11-19] MEDS: THIAMINE HCL 100 MG TABLET (FP) PO SCH (21:13)
[2019-11-20 06:52] VITALS: BP 120/72; PULSE 65; TEMP 98.8
[2019-11-20] MEDS: PRENATAL VITAMINS W/ FOLIC ACID TABLET (FP) PO SCH (09:53)
[2019-11-20] MEDS: ASPIRIN 81 MG CHEWABLE TABLETS PO SCH (09:53)
[2019-11-20] MEDS: HYDROCHLOROTHIAZIDE 12.5 MG CAPSULE (FP) PO SCH (09:53)
[2019-11-20] MEDS: METHYL SALICYLATE/MENTHOL OINT 30 GM TUBE TP SCH (09:54)
--- NOTE | 2019-11-20 13:04 | DS ---
[facility] Rehab Discharge Summary - [facility] Rehab Discharge Summary Admission Date: 11/14/19 Discharge Date: 11/20/19 - History Present History: Alcohol dependence, Cocaine dependence Additional Comments: Pt is a 53 y/o male with a hx of LYDIA admitted to rehab after ddetox on and requesting early discharge today. Pertinent Past History: HTN CVA Mood Disorder - Discharge Physical Exam Vital Signs: Vital Signs Temperature 98.8 F 11/20/19 06:52 Pulse Rate 65 11/20/19 06:52 Respiratory Rate 18 11/20/19 06:52 Blood Pressure 120/72 11/20/19 06:52 O2 Sat by Pulse Oximetry (%) Alert o x 3 nad oob ambulating with steady gait Pt refused Assessment/PE on D/C Pertinent Admission Physical Exam Findings: Laboratory Tests 11/15/19 08:00 Urine Color Yellow Urine Appearance Clear Urine pH 7.0 D Ur Specific Corn 1.013 Urine Protein Negative Urine Glucose (UA) Negative Urine Ketones Negative Urine Blood Negative Urine Nitrite Negative Urine Bilirubin Negative Urine Urobilinogen 0.2 Ur Leukocyte Esterase Negative - Treatment Discharge Condition: Discharge condition good Hospital Course: Rehabilitated safely Cd aftercare referral accepted. - Medication Discharge Medications: Ambulatory Orders Aspirin [ASA -] 81 mg PO DAILY #14 tab.chew 11/20/19 Hydrochlorothiazide [Hctz -] 12.5 mg PO DAILY #14 cap 11/20/19 - Medication-Assisted Treatment (MAT) Medication-Assisted Treatment (MAT): No - Discharge Instructions Diet, activity, other medical instructions: Diet:MANUEL Activity: oob ad arti Other medical instructions:follow up with CD aftercare recommendations as scheduled. Follow up with primary care with [facility] clinic for medical management within 1 week after discharge. - Diagnosis (1) Hypertension Status: Chronic Qualifiers: Hypertension type: essential hypertension (2) Alcohol dependence Status: Chronic Qualifiers: Substance use status: uncomplicated Qualified Code(s): F10.20 - Alcohol dependence, uncomplicated (3) Cocaine dependence Status: Chronic Qualifiers: Substance use status: uncomplicated Qualified Code(s): F14.20 - Cocaine dependence, uncomplicated - Follow-up Referral Minutes to complete discharge: 15 - AMA Did Patient Leave Against Medical Advice: No
== END 2019-11-20 13:50 | disposition home or self-care (01) | DRG 772 ==
LOC: YASAS 13:03 → Y5N 13:04
PROVIDERS: ADMIT Allergy & Immunology; ATTEND Neuromusculoskeletal Medicine & OMM
PROC: HZ42ZZZ Group Counseling for Substance Abuse Treatment, Cognitive-Behavioral (ICD-10-PCS; principal; 2019-11-14)
DX: F10.20 Alcohol dependence, uncomplicated (principal); F14.20 Cocaine dependence, uncomplicated; F39 Unspecified mood [affective] disorder; I10 Essential (primary) hypertension; L85.3 Xerosis cutis; L84 Corns and callosities; Z86.73 Personal history of transient ischemic attack (TIA), and cerebral infarction without residual deficits; R26.89 Other abnormalities of gait and mobility; Z99.89 Dependence on other enabling machines and devices; Z91.013 Allergy to seafood; Z88.8 Allergy status to other drugs, medicaments and biological substances
CPT/HCPCS: 81003